=== PATIENT | female | born 1990 | race Caucasian/White ===

== ENCOUNTER → 2017-05-29 11:50 | Outpatient (CLI) | payer OTHER, SELFPAY ==
[2017-05-29 12:01] LABS: Bacteria 0 SEEN /hpf (None Seen); Mucous, Urine 0 SEEN /hpf (<or=2+); Squamous Epithelial Cells - UA 0 SEEN /hpf (5-10); White Blood Cells 0 SEEN /hpf (0-5)
[2017-05-29 14:19] LABS: Color, Urine Yellow (Yellow); Glucose, Dipstick Normal (Normal); Ketone-Dipstick Negative (Negative); Leukocyte Esterase-Dipstick Negative /ul (Negative); Nitrite-Dipstick Negative (Negative); Occult Blood-Urine 10 /ul (Negative); Protein-Dipstick Negative (Negative); Urine Bilirubin Dipstick Negative (Negative); Urine Clarity Sl. Cloudy (Clear); Urine Urobilinogen Normal (Normal)
[2017-05-29 16:45] LABS: Red Blood Cells-Urine 0-5 SEEN /hpf (0-5)
== END ==
PROVIDERS: Visit Provider Obstetrics & Gynecology
DX: Z34.82 Encounter for supervision of other normal pregnancy, second trimester (principal); N39.0 Urinary tract infection, site not specified
CPT/HCPCS: 81001; 87086; 87088

== ENCOUNTER → 2017-06-26 10:27 | Outpatient (CLI) | payer OTHER, SELFPAY ==
[2017-06-26 13:06] LABS: Hematocrit 36.2 % (37-47); Hemoglobin 12.4 g/dl (12.0-15.0); Mean Corp Hgb Conc 34.3 g/gl (32-36); Mean Corpuscular Volume 96.3 fL (81-99); Mean Platelet Vol. 9.3 fl (6.2-12.0); Platelet Count 229 K/mm3 (150-450); RBC Distribution Width SD 43.4 fl (35.1-43.9); Red Blood Count 3.76 M/mm3 (4.2-5.4); White Blood Count 11.7 K/mm3 (4.4-11.0)
[2017-06-26 13:08] LABS: Glucose Challenge Gest 1H 50g 152 mg/dL (70-140)
[2017-06-26 13:14] LABS: Scan Indicated on CBC? Y/N NO
== END ==
PROVIDERS: Visit Provider Obstetrics & Gynecology
DX: Z34.83 Encounter for supervision of other normal pregnancy, third trimester (principal)
CPT/HCPCS: 36415; 82950; 85027

== ENCOUNTER → 2017-07-03 06:54 | Outpatient (CLI) | payer OTHER, SELFPAY ==
[2017-07-03 08:24] LABS: Glucose GTT-Gestation. Fasting 75 mg/dL (<105)
[2017-07-03 09:00] LABS: Anion Gap 11 (5-15); BUN 5 mg/dL (7-18); BUN/Creat Ratio 10.8 RATIO (10-20); Calcium,Total 8.6 mg/dL (8.5-10.1); Chloride 109 mmol/L (98-107); Creatinine, Serum 0.46 mg/dL (0.55-1.02); EST Glomerular Filtration Rate 171 mL/min (>60); Est Glom Filt Rate - Afr Amer 207 mL/min (>60); Glucose 72 mg/dL (74-106); Potassium 3.1 mmol/L (3.5-5.1); Sodium Level 143 mmol/L (136-145)
[2017-07-03 09:49] LABS: Glucose GTT-Gestational 1 Hr 170 mg/dL (<190)
[2017-07-03 09:51] LABS: Glucose GTT-Gestational 2 Hr 168 mg/dL (<165)
[2017-07-03 11:13] LABS: Glucose GTT-Gestational 3 Hr 115 L (<145)
== END ==
PROVIDERS: Family Provider Family Medicine; PCP Family Medicine; Visit Provider Obstetrics & Gynecology
DX: Z34.83 Encounter for supervision of other normal pregnancy, third trimester (principal); E04.9 Nontoxic goiter, unspecified; R73.09 Other abnormal glucose
CPT/HCPCS: 36415; 80048; 82951; 82952

== ENCOUNTER → 2017-08-10 14:22 | Outpatient (CLI) | payer OTHER, SELFPAY ==
[2017-08-10 18:20] LABS: Group B Strep DNA By PCR POSITIVE (Negative); Probe Check PASS
== END ==
PROVIDERS: Visit Provider Obstetrics & Gynecology
DX: Z36.85 Encounter for antenatal screening for Streptococcus B (principal)
CPT/HCPCS: 87653

== ENCOUNTER 2017-09-04 06:50 | Inpatient (IN) | payer OTHER, SELFPAY ==
[2017-09-04 06:57] VITALS: BMI 33.3
[2017-09-04] MEDS: Lactated Ringers 1,000 ML 50 ML IV ×2 (07:30→21:21)
[2017-09-04 07:55] LABS: Hematocrit 39.2 % (37-47); Hemoglobin 13.7 g/dl (12.0-15.0); Mean Corp Hgb Conc 34.9 g/gl (32-36); Mean Corpuscular Hgb 32.7 pg (27.0-32.0); Mean Corpuscular Volume 93.6 fL (81-99); Mean Platelet Vol. 9.6 fl (6.2-12.0); Platelet Count 254 K/mm3 (150-450); RBC Distribution Width CV 13.3 % (11.6-14.6); RBC Distribution Width SD 43.6 fl (35.1-43.9); Red Blood Count 4.19 M/mm3 (4.2-5.4); White Blood Count 10.5 K/mm3 (4.4-11.0)
[2017-09-04 07:56] LABS: Scan Indicated on CBC? Y/N NO
[2017-09-04] MEDS: Oxytocin 30 units/NS 500 ml 30 UNITS/500 ML IV.SOLN IV (08:19)
[2017-09-04] MEDS: Hydrocortisone 10 MG Tablet 15 MG PO ×3 (09:18→22:34)
[2017-09-04 10:52] LABS: Protein, Urine (Random) 9.9 mg/dL (<11.9); Protein:Creat Ratio 331 mg/g CRE (0-200)
[2017-09-04 11:34] LABS: ALB/GLOB Ratio 0.7 RATIO (0.9-2.4); AST(SGOT) 17 U/L (15-37); Alanine Aminotransfer ALT/SGPT 19 U/L (13-56); Albumin, Serum 2.7 g/dL (3.2-5.0); Alkaline Phosphatase 139 U/L (45-117); Anion Gap 10 (5-15); BUN 6 mg/dL (7-18); BUN/Creat Ratio 8.6 RATIO (10-20); Calcium,Total 9.1 mg/dL (8.5-10.1); Chloride 107 mmol/L (98-107); EST Glomerular Filtration Rate 106 mL/min (>60); Est Glom Filt Rate - Afr Amer 129 mL/min (>60); Globulin 4.1 g/dL (2.2-4.2); Glucose 90 mg/dL (74-106); Potassium 3.4 mmol/L (3.5-5.1); Protein, Total 6.8 g/dL (6.4-8.2); Sodium Level 139 mmol/L (136-145); Uric Acid 5.6 mg/dL (2.6-6.0)
--- NOTE | 2017-09-04 18:23 | PCM.PN.BLA ---
Progress Note LABOR PROGRESS NOTE Denies regular contractions. Has intermittent mild cramping. Fetus active. AVSS GEN - NAD, AAO x 3 FHR 120, moderate variability, + accelerations, no decelerations TOCO irritability SVE 3.5/80/-3, moderate and midposition A/P: 27yo G1 @ 39 2/7wga with h/o adult onset CAH, preeclampsia without severe features, Cat I FHR -SVE unchanged, amniotomy performed -IUPC placed, continue pitocin as tolerated by mother and fetus
--- NOTE | 2017-09-04 20:16 | PCM.PN.BLA ---
Progress Note LABOR PROGRESS NOTE Contractions are intensifying. AVSS GEN - NAD, AAO x3 FHR 135, moderate variability, + accelerations, + variable deceleration TOCO 4-5/10 min, MVU 185 SVE 3.5/80/-3 A/P: 27yo G1 @ 39 2/7wga, h/o CAH, IOL for gHTN, Cat II FHR -Overall reassuring FHR -Epidural per patient request -Maternal and statuses reassuring
[2017-09-04] MEDS: fentaNYL-bupivacaine (epidural) 100 ML BAG EPIDURAL (20:30)
[2017-09-05] VITALS (14 sets, daily range): BP systolic 110–150; BP diastolic 65–87; PULSE 85–109; RESP 16–18; TEMP 36.2–37.4; O2SAT 98–100
[2017-09-05] MEDS: fentaNYL-bupivacaine (epidural) 100 ML BAG EPIDURAL ×3 (00:30→10:06)
[2017-09-05] MEDS: Ondansetron 4 MG/2 ML Vial IV ×2 (00:58→21:25)
[2017-09-05] MEDS: Acetaminophen 325 MG Tablet PO (01:00)
[2017-09-05] MEDS: Lactated Ringers 1,000 ML 50 ML IV ×3 (02:41→11:49)
[2017-09-05] MEDS: Amnioinfusion- 0.9% NS 1,000 ML IV.SOLN. INTRA-UTER (05:00)
[2017-09-05] MEDS: Hydrocortisone 10 MG Tablet 15 MG PO (07:58)
[2017-09-05] MEDS: 0.9% Saline Lock 10 ML Syringe IV ×2 (08:24→08:26)
[2017-09-05] MEDS: Sodium Citrate/Citric Acid 30 ML UDC PO (15:56)
--- NOTE | 2017-09-05 16:01 | PCM.PROGNOTE ---
Subjective: Comfortable. Objective: Afeb VSS had temp of 100.8 but since resolved - Physical Exam General: Alert, Oriented x3, Cooperative, No apparent distress Lungs: Clear to auscultation, Normal air movement Cardiovascular: Regular rate, Regular Rhythm Abdomen: Gravid, Appropriate for Gestational Age Psych/Mental Status: Normal Affect Comment: FD 0 station Weight: 176 lb 4 oz Body Mass Index (BMI) 33.3 Intake and Output for Last 24 Hours 09/03/17 09/04/17 09/05/17 23:59 23:59 23:59 Intake Total 200 / 200 6044 / 6044 Output Total 2200 / 2200 Balance 200 / 200 3844 / 3844 Medical Necessity - Tobacco Use Smoking Status: Never smoker Assessment/Plan Now has been pushing for over 4 hours with no descent of the head. Vertex only at 0 station. Given lack of descent will proceed to delivery. Procedures, indication, and risks discussed. All questions answered. Will have day care center director at delivery secondary to meconium noted.
--- NOTE | 2017-09-05 16:04 | PN_ITS ---
Subjective: Comfortable. Objective: Afeb VSS had temp of 100.8 but since resolved - Physical Exam General: Alert, Oriented x3, Cooperative, No apparent distress Lungs: Clear to auscultation, Normal air movement Cardiovascular: Regular rate, Regular Rhythm Abdomen: Gravid, Appropriate for Gestational Age Psych/Mental Status: Normal Affect Comment: FD 0 station Weight: 176 lb 4 oz Body Mass Index (BMI) 33.3 Intake and Output for Last 24 Hours 09/03/17 09/04/17 09/05/17 23:59 23:59 23:59 Intake Total 200 / 200 6044 / 6044 Output Total 2200 / 2200 Balance 200 / 200 3844 / 3844 Medical Necessity - Tobacco Use Smoking Status: Never smoker Assessment/Plan Now has been pushing for over 4 hours with no descent of the head. Vertex only at 0 station. Given lack of descent will proceed to delivery. Procedures, indication, and risks discussed. All questions answered. Will have physical therapist clinic director at delivery secondary to meconium noted.
--- NOTE | 2017-09-05 16:11 | DCINST_ITS ---
Discharge Diet: No Restrictions Discharge Activity: Return to Normal Activity, May Not Drive, May not drive while taking narcotic pain medications., May Shower Return to work on:: 10/22/17 May shower in (days): 0 May resume sexual activity in: 4-6 weeks Call your doctor if your incision/area has: Sudden Increased Bleeding, Increased Pain/ Swelling, Increased Redness, Foul Smelling Discharge, Swelling at the incision site Call your doctor if you observe: Fever of 101 or Higher, Inability to urinate, Inability to have a bowel movement, Using more than one pad per hour, Shortness of breath, Chest pain, Uncontrolled pain Remove Dressing in (days):: 2 Cleanse incision/area with: Soap & Water Additional Instructions: If you experience any of the following, contact your healthcare provider. * Bleeding that soaks a pad every hour for 2 hours * Fever 100.4 or higher * Unrelieved incision or abdominal pain * Swelling, redness, discharge or bleeding from your incision or episiotomy site * Your incision begins to separate * Problems urinating (including inability to urinate or burning while urinating) . * Visual changes * Severe headache * Flu-like symptoms * Pain or redness in one of both of your breasts * Pain, warmth, tenderness or swelling in your legs, especially the calf area * Frequent nausea and vomiting * Symptoms of depression or anxiety If you experience any of the following, call 911 or go to the nearest Emergency Room. * Chest pain * Problems breathing * Seizure activity * Partial or complete paralysis of a body part, slurred speech, weakness or drooping of the face, or a sudden inability to walk or hold your balance Allergies/Adverse Reactions: Allergies No Known Allergies Allergy (Verified 09/04/17 07:51) Medications to take at Discharge Ibuprofen 600 mg PO 4X/DAY #30 tab 09/05/17 Oxycodone [Oxyir] 5 - 10 mg PO Q4H PRN PRN 7 Days #20 tab 09/05/17 The following prescriptions were given: Oxycodone [Oxyir] 5 - 10 mg PO Q4H PRN PRN 7 Days #20 tab PRN Reason: Mod-Severe Pain () Ibuprofen 600 mg PO 4X/DAY #30 tab Follow-Up: Call to make an appointment with your doctor for an incision check in 1-2 weeks. You will also need a 6 week post- follow up appointment. Test results from this visit will be discussed in further detail at your follow- up appointment, if applicable. Please Follow Up With: Noemy Gutierrez MD When: one week Primary Care Physician: Brian Veliz MD [Primary Care Provider] - Proposed Discharge Date: 09/08/17
[2017-09-05] MEDS: Oxytocin 30 units/NS 500 ml 30 UNITS/500 ML IV.SOLN 167 UNITS IV (16:34)
--- NOTE | 2017-09-05 17:15 | PCM.OB.CSR ---
- Problem List (1) Arrest of descent, delivered, current hospitalization Status: Chronic Delivery Classification: VALORIE Final NEGRITO: 09/09/17 Final NEGRITO Source: US <20 weeks Gestational age: 39 Weeks and 3 Days doctor who attended delivery (if requested by OB): Aida Alexander Indications for : Arrrest of Descent Description of Procedure: No descent lower than 0 station despeite four hours of pushing efforts. Delivery of live female weighing 8 lbs. Apgars were 8/9. Amniotic Membrane Rupture Type: Spontaneous Amniotic Fluid Description: Clear Placenta Disposition: [facility] Drain: Antonio to straight drain Fluids Replaced: 1500cc Cord Entanglement: None Nuchal Cord Compression: Without compression Cord Vessel Description: 3 Vessels Esitmated Blood Loss (ml): 600cc Infant Gender: Female (1 minute): 8 (5 minute): 9 Delayed cord clamping: No Pre-op Antibiotic Given: Ancef 2 grams IV x1 Pt instructed on risks of surgery: Bleeding, Infection, Injury to surrounding structure(s) including bowel and bladder Complications: None - Admit VTE Documentation VTE Present on Admission: No VTE Mechan Device Prophylaxis: SCD's VTE Pharm Prophylaxis ordered?: No
--- NOTE | 2017-09-05 17:19 | PCM.OPRPT ---
Problem List (1) Arrest of descent, delivered, current hospitalization Status: Chronic Report of Operation Date of Procedure: 09/05/17 Pre-Operative Diagnosis: Arrest of Descent Post-Operative Diagnosis: Same Surgery/Procedure Performed:: Primary Low Transverse Section Description of Surgical Findings:: Maximum descent of 0 station despite 4 hours of pushing efforts. Delivery of live female with Apgars of 8/9. weight 3xim2ug. Thin meconium present. Normal appearing uterus, ovaries, and fallopian tubes. machine hoop maker: Lyssa Delgado Type of Anesthesia:: Epidural Anesthesiologist: Fermin Eugene Special Medications: none Specimen's removed: cord blood Drains: lomeli Estimated Blood Loss (mL): 600cc Fluids Replaced: 1500cc Description of Procedure: Samara was counselled on the indications, risks, and postoperative expectations of the section. All questions were answered. She was taken to the OR with IV running. She was given 2 grams of Ancef intravenously for surgical prophylaxis. SCDs were in place from the preoperative room through surgery and into recovery. A lomeli catheter had been previously placed. She was then dosed through the epidural for anesthesia and then prepped and draped in the supine position with a leftward tilt. Once anesthesia was deemed adequate a Pfannensteil skin incision was made with the scalpel and the subcutaneous tissue was dissected down to the level of fascia with sharp and blunt dissection. The fascia was then incised in the midline and the fascial incision was extended bilaterally using the Márquez scissors. The upper portion of the fascial defect was grasped with two Bennett clamps elevated and the rectus muscles dissected off with sharp and blunt dissection. In a similar fashion the rectus muscles were dissected off the lower fascial defect. The rectus muscles were in the midline, the peritoneum identified and entered bluntly. This peritoneal defect was extended using blunt retraction. A bladder blade was then placed. The vesicouterine peritoneum was incised and a bladder flap created. The bladder blade was then replaced. The lower uterine segment was then incised with the scalpel and once the cavity was entered the uterine defect was enlarged using blunt lateral and superior traction. The baby's head was then delivered easily followed by the body. The nose and mouth were suctioned with a bulb suction and the cord clamped and cut. The baby was handed off to the waiting nursing staff for evaluation. The placenta was then delivered manually, the uterus exteriorized, and the cavity cleared of all clot and membranes. The uterine defect was then closed in two layers with #1 Vicryl suture. The posterior cul de sac was then cleared of all clot and fluid. The uterus was then returned to the abdomen. The gutters were cleared of all clot and fluid. The uterine incision was reinspected and found to be hemostatic. The peritoneum was then closed with a running stitch of 2-0 vicryl. The rectus muscles reapproximated with 0-Vicryl. The fascia was closed with a running stitch of #1 Stratofix suture. The subcutaneous tissue was closed with 2-0 Vicryl. The skin was closed with a subcuticular stitch of 4-0 Monocryl. Sponge, lap, needle, and instrument counts were correct. Samara was taken to her recovery room in stable condition. Grafts/Implants Used: none - Complications none - Admit VTE Documentation VTE Present on Admission: No VTE Mechan Device Prophylaxis: SCD's VTE Pharm Prophylaxis ordered?: No
[2017-09-05] MEDS: Lactated Ringers 1,000 ML 100 ML IV ×2 (17:25→21:27)
--- NOTE | 2017-09-05 17:26 | OP.PCM_ITS ---
Problem List (1) Arrest of descent, delivered, current hospitalization Status: Chronic Report of Operation Date of Procedure: 09/05/17 Pre-Operative Diagnosis: Arrest of Descent Post-Operative Diagnosis: Same Surgery/Procedure Performed:: Primary Low Transverse Section Description of Surgical Findings:: Maximum descent of 0 station despite 4 hours of pushing efforts. Delivery of live female with Apgars of 8/9. weight [id number]. Thin meconium present. Normal appearing uterus, ovaries, and fallopian tubes. cutter machine: Lyssa Delgado Type of Anesthesia:: Epidural Anesthesiologist: Fermin Eugene Special Medications: none Specimen's removed: cord blood Drains: lomeli Estimated Blood Loss (mL): 600cc Fluids Replaced: 1500cc Description of Procedure: Samara was counselled on the indications, risks, and postoperative expectations of the section. All questions were answered. She was taken to the OR with IV running. She was given 2 grams of Ancef intravenously for surgical prophylaxis. SCDs were in place from the preoperative room through surgery and into recovery. A lomeli catheter had been previously placed. She was then dosed through the epidural for anesthesia and then prepped and draped in the supine position with a leftward tilt. Once anesthesia was deemed adequate a Pfannensteil skin incision was made with the scalpel and the subcutaneous tissue was dissected down to the level of fascia with sharp and blunt dissection. The fascia was then incised in the midline and the fascial incision was extended bilaterally using the Márquez scissors. The upper portion of the fascial defect was grasped with two Bennett clamps elevated and the rectus muscles dissected off with sharp and blunt dissection. In a similar fashion the rectus muscles were dissected off the lower fascial defect. The rectus muscles were in the midline, the peritoneum identified and entered bluntly. This peritoneal defect was extended using blunt retraction. A bladder blade was then placed. The vesicouterine peritoneum was incised and a bladder flap created. The bladder blade was then replaced. The lower uterine segment was then incised with the scalpel and once the cavity was entered the uterine defect was enlarged using blunt lateral and superior traction. The baby's head was then delivered easily followed by the body. The nose and mouth were suctioned with a bulb suction and the cord clamped and cut. The baby was handed off to the waiting nursing staff for evaluation. The placenta was then delivered manually, the uterus exteriorized, and the cavity cleared of all clot and membranes. The uterine defect was then closed in two layers with #1 Vicryl suture. The posterior cul de sac was then cleared of all clot and fluid. The uterus was then returned to the abdomen. The gutters were cleared of all clot and fluid. The uterine incision was reinspected and found to be hemostatic. The peritoneum was then closed with a running stitch of 2-0 vicryl. The rectus muscles reapproximated with 0-Vicryl. The fascia was closed with a running stitch of #1 Stratofix suture. The subcutaneous tissue was closed with 2-0 Vicryl. The skin was closed with a subcuticular stitch of 4 -0 Monocryl. Sponge, lap, needle, and instrument counts were correct. Samara was taken to her recovery room in stable condition. Grafts/Implants Used: none - Complications none - Admit VTE Documentation VTE Present on Admission: No VTE Mechan Device Prophylaxis: SCD's VTE Pharm Prophylaxis ordered?: No
[2017-09-05] MEDS: Methylergonovine 0.2 MG/ML Ampul IM ×2 (19:45→22:05)
[2017-09-05] MEDS: Ketorolac 30 MG/ML Syringe IV (23:46)
[2017-09-06] VITALS (12 sets, daily range): BP systolic 128–143; BP diastolic 61–82; PULSE 94–105; RESP 16–24; TEMP 36.4–36.9; O2SAT 96–100
[2017-09-06] MEDS: Cefazolin 1 GM/50 ML BAG IV ×2 (00:24→08:06)
[2017-09-06] MEDS: Ketorolac 30 MG/ML Syringe IV ×3 (06:20→17:54)
[2017-09-06 06:34] LABS: Hematocrit 25.2 % (37-47); Hemoglobin 8.7 g/dl (12.0-15.0); Mean Corp Hgb Conc 34.5 g/gl (32-36); Mean Corpuscular Volume 95.5 fL (81-99); Platelet Count 157 K/mm3 (150-450); RBC Distribution Width CV 13.9 % (11.6-14.6); Red Blood Count 2.64 M/mm3 (4.2-5.4); White Blood Count 9.2 K/mm3 (4.4-11.0)
[2017-09-06 06:38] LABS: Scan Indicated on CBC? Y/N NO
--- NOTE | 2017-09-06 06:41 | PCM.PN.OB ---
Subjective: No specific complaints. Pain reasonably controlled. Objective: Afeb VSS Hgb somewhat low today but asymptomatic with good urine output. - Physical Exam General: Alert, Oriented x3, Cooperative, No apparent distress Lungs: Clear to auscultation, Normal air movement Cardiovascular: Regular rate, Regular Rhythm Abdomen: Soft, Non Tender, Non-Distended, - - INcision dressing dry Extremities: No edema, No Calf Tenderness Skin: No rashes Neurological: Neuro grossly intact Psych/Mental Status: Normal Affect Comment: Lochia appropriate POD#1 Vital Signs Temp Pulse Resp BP Pulse Ox 97.5 F L 105 H 18 128/82 H 99 09/06/17 03:15 09/06/17 03:15 09/06/17 04:20 09/06/17 03:15 09/06/17 04:20 Oxygen Delivery Method Room Air Weight: 176 lb 4 oz Body Mass Index (BMI) 33.3 Intake and Output for Last 24 Hours 09/04/18 //18 18 23:59 23:59 23:59 Intake Total 200 / 200 7531 / 7531 Output Total 2500 / 2500 Balance 200 / 200 5031 / 5031 Laboratory Tests Past 24 Hrs /03/25 06:15 WBC 9.2 RBC 2.64 L Hgb 8.7 L Hct 25.2 L MCV 95.5 MCH 33.0 H MCHC 34.5 RDW 13.9 RDW Differential 48.0 H Plt Count 157 MPV 9.0 Medical Necessity - Tobacco Use Smoking Status: Never smoker Assessment/Plan Doing well on POD#1. Continue routine PO care. CBC ordered for tomorrow.
[2017-09-06] MEDS: Hydrocortisone 10 MG Tablet 15 MG PO ×3 (08:13→17:54)
[2017-09-06] MEDS: 0.9% Saline Lock 10 ML Syringe IV ×3 (08:32→17:53)
[2017-09-06] MEDS: Lactated Ringers 1,000 ML 100 ML IV (08:45)
[2017-09-06] MEDS: oxyCODONE 5 MG Tablet PO (16:33)
[2017-09-06] MEDS: Senna/Docusate Sodium 1 Tablet PO (20:53)
[2017-09-07] MEDS: Ketorolac 30 MG/ML Syringe IV ×4 (00:15→17:40)
[2017-09-07 03:00] VITALS: BP 133/61; PULSE 110; RESP 16; TEMP 36.4; O2SAT 98
[2017-09-07] MEDS: 0.9% Saline Lock 10 ML Syringe IV ×2 (05:31→17:39)
[2017-09-07 05:49] LABS: Absolute Lymphocyte Count 1.53 X10^3/ul (0.83-4.51); Absolute Neutrophil Count 6.9 X10^3/uL (2.0-7.7); Basophil# 0.01 X10^3/uL; Basophil% 0.1 % (0-1); Eosinophil# 0.05 X10^3/uL; Eosinophils% 0.6 % (0-5); Hematocrit 21.6 % (37-47); Hemoglobin 7.3 g/dl (12.0-15.0); Lymphocyte # 1.53 X10^3/ul (4.0); Lymphocyte % 17.1 % (19-41); Mean Corp Hgb Conc 33.8 g/gl (32-36); Mean Corpuscular Hgb 32.9 pg (27.0-32.0); Mean Corpuscular Volume 97.3 fL (81-99); Mean Platelet Vol. 9.5 fl (6.2-12.0); Monocyte# 0.43 X10^3/uL; Monocyte% 4.8 % (0-10); Neutrophil # 6.89 X10^3/uL (2.7-7.7); Neutrophil % 77.2 % (47-70); Platelet Count 190 K/mm3 (150-450); RBC Distribution Width CV 13.3 % (11.6-14.6); Red Blood Count 2.22 M/mm3 (4.2-5.4); White Blood Count 8.9 K/mm3 (4.4-11.0)
[2017-09-07 05:53] LABS: POSITIVE COUNT NO; POSITIVE DIFFERENTIAL NO; POSITIVE MORPHOLOGY NO
[2017-09-07 08:00] VITALS: BP 137/68; PULSE 96; RESP 16; TEMP 36.3
--- NOTE | 2017-09-07 08:15 | PCM.PN.OB ---
Subjective: Denies headache, vision changes, shortness of breath or abdominal pain. Her incisional site is sore, but pain controlled. Passing flatus, +bowel movement. Denies lightheadedness, palpitations. Objective: AVSS - Physical Exam General: Alert, Oriented x3, Cooperative, No apparent distress HEENT: Atraumatic, Normocephalic Lungs: Clear to auscultation, Normal air movement Cardiovascular: Regular rate, Regular Rhythm, Normal S1, Normal S2 Abdomen: Bowel Sounds Present, Soft, Non Tender, Non-Distended, - - Fundus firm and nontender, incisional dressing c/d/i Extremities: No Calf Tenderness, - - trace LE edema Neurological: Neuro grossly intact Psych/Mental Status: Normal Affect, Appropriate, Alert and oriented to time, place, person, mood and affect Vital Signs Temp Pulse Resp BP Pulse Ox 98 F 88 18 140/88 H 98 09/07/17 13:30 09/07/17 13:30 09/07/17 13:30 09/07/17 13:30 09/07/17 03:00 Oxygen Delivery Method Room Air Weight: 79.946 kg Body Mass Index (BMI) 33.3 Intake and Output for Last 24 Hours 09/05/17 09/06/17 09/07/17 23:59 23:59 23:59 Intake Total 7531 / 7531 3264 / 3264 Output Total 2500 / 2500 4250 / 4250 500 / 500 Balance 5031 / 5031 -986 / -986 -500 / -500 Laboratory Tests Past 24 Hrs 09/07/17 05:36 WBC 8.9 RBC 2.22 L Hgb 7.3 L Hct 21.6 L MCV 97.3 MCH 32.9 H MCHC 33.8 RDW 13.3 RDW Differential 44.0 H Plt Count 190 MPV 9.5 Immature Gran % (Auto) 0.200 Neut % (Auto) 77.2 H Lymph % (Auto) 17.1 L [place] % (Auto) 4.8 Eos % (Auto) 0.6 Baso % (Auto) 0.1 Absolute Neuts (auto) 6.9 Absolute Lymphs (auto) 1.53 Total Counted Not Reportable Medical Necessity - Tobacco Use Smoking Status: Never smoker Assessment/Plan 27yo POD#2 s/p PLTCS doing well. -Post-op anemia - pt asx, no evidence of bleed on exam. Will obtain orthostatics. Repeat CBC tomorrow. Fe supplementation. -Routine post-op care -Rh negative, f/u screen
[2017-09-07] MEDS: Hydrocortisone 10 MG Tablet 15 MG PO ×3 (08:22→17:38)
[2017-09-07] MEDS: Acetaminophen 500 MG Tablet 1000 MG PO (08:22)
[2017-09-07 09:30] VITALS: BP 146/74; PULSE 104; RESP 16
[2017-09-07 09:35] VITALS: BP 120/76; BP 146/77; PULSE 106; PULSE 98; RESP 16
[2017-09-07 13:30] VITALS: BP 140/88; PULSE 88; RESP 18; TEMP 36.6
--- NOTE | 2017-09-07 18:20 | DCINST_ITS ---
Discharge Diet: No Restrictions Discharge Activity: Return to Normal Activity, May Not Drive, May not drive while taking narcotic pain medications., May Shower Return to work on:: 10/22/17 May shower in (days): 0 May resume sexual activity in: 6 weeks Lifting Restrictions: 10 lb Call your doctor if your incision/area has: Sudden Increased Bleeding, Increased Pain/ Swelling, Increased Redness, Foul Smelling Discharge, Swelling at the incision site Call your doctor if you observe: Fever of 101 or Higher, Inability to urinate, Inability to have a bowel movement, Using more than one pad per hour, Shortness of breath, Chest pain, Uncontrolled pain Suture Line Care: Avoid Pulling/Pushing Remove Dressing in (days):: 2 Cleanse incision/area with: Soap & Water Additional Instructions: If you experience any of the following, contact your healthcare provider. * Bleeding that soaks a pad every hour for 2 hours * Fever 100.4 or higher * Unrelieved incision or abdominal pain * Swelling, redness, discharge or bleeding from your incision or episiotomy site * Your incision begins to separate * Problems urinating (including inability to urinate or burning while urinating) . * Visual changes * Severe headache * Flu-like symptoms * Pain or redness in one of both of your breasts * Pain, warmth, tenderness or swelling in your legs, especially the calf area * Frequent nausea and vomiting * Symptoms of depression or anxiety If you experience any of the following, call 911 or go to the nearest Emergency Room. * Chest pain * Problems breathing * Seizure activity * Partial or complete paralysis of a body part, slurred speech, weakness or drooping of the face, or a sudden inability to walk or hold your balance Allergies/Adverse Reactions: Allergies No Known Allergies Allergy (Verified 09/04/17 07:51) Medications to take at Discharge Ibuprofen 600 mg PO 4X/DAY #30 tab 09/05/17 Oxycodone [Oxyir] 5 - 10 mg PO Q4H PRN PRN 7 Days #20 tab 09/05/17 Ferrous Sulfate 325 mg PO BIDCM #60 tab 09/07/17 The following prescriptions were given: Oxycodone [Oxyir] 5 - 10 mg PO Q4H PRN PRN 7 Days #20 tab PRN Reason: Mod-Severe Pain (-10/10) Ferrous Sulfate 325 mg PO BIDCM #60 tab Ibuprofen 600 mg PO 4X/DAY #30 tab Follow-Up: Call to make an appointment with your doctor for an incision check in 1-2 weeks. You will also need a 6 week post- follow up appointment. Test results from this visit will be discussed in further detail at your follow- up appointment, if applicable. Please Follow Up With: Noemy Gutierrez MD When: 1-2 weeks Primary Care Physician: Brian Veliz MD [Primary Care Provider] - Proposed Discharge Date: 09/08/17
[2017-09-07 21:15] VITALS: BP 140/71; PULSE 105; RESP 16; TEMP 36.7; O2SAT 97
[2017-09-08] VITALS (8 sets, daily range): BP systolic 135–147; BP diastolic 66–83; PULSE 102–115; RESP 16–20; TEMP 36.3–37.1
[2017-09-08] MEDS: oxyCODONE 5 MG Tablet PO (03:03)
[2017-09-08 05:55] LABS: Absolute Lymphocyte Count 1.59 X10^3/ul (0.83-4.51); Absolute Neutrophil Count 6.4 X10^3/uL (2.0-7.7); Basophil# 0.01 X10^3/uL; Basophil% 0.1 % (0-1); Eosinophil# 0.11 X10^3/uL; Eosinophils% 1.3 % (0-5); Hemoglobin 6.6 g/dl (12.0-15.0); Lymphocyte # 1.59 X10^3/ul (4.0); Lymphocyte % 18.4 % (19-41); Mean Corpuscular Hgb 32.2 pg (27.0-32.0); Mean Corpuscular Volume 97.6 fL (81-99); Mean Platelet Vol. 9.1 fl (6.2-12.0); Monocyte# 0.45 X10^3/uL; Monocyte% 5.2 % (0-10); Neutrophil # 6.39 X10^3/uL (2.7-7.7); Neutrophil % 74.2 % (47-70); Platelet Count 225 K/mm3 (150-450); RBC Distribution Width SD 43.4 fl (35.1-43.9); Red Blood Count 2.05 M/mm3 (4.2-5.4); White Blood Count 8.6 K/mm3 (4.4-11.0)
[2017-09-08 05:56] LABS: POSITIVE COUNT NO; POSITIVE DIFFERENTIAL NO; POSITIVE MORPHOLOGY NO
[2017-09-08] MEDS: Ibuprofen 600 MG Tablet PO (06:05)
[2017-09-08] MEDS: 0.9% Saline Lock 10 ML Syringe IV (07:02)
[2017-09-08] MEDS: Hydrocortisone 10 MG Tablet 15 MG PO ×2 (08:14→12:45)
[2017-09-08] MEDS: Ferrous Sulfate 325 MG Tablet PO (08:22)
--- NOTE | 2017-09-08 10:27 | PCM.PN.OB ---
Subjective: Reports shakiness from yesterday resolved. Denies lightheadedness, chest pain, shortness of breath or palpitations. Pain controlled. Denies heavy lochia. Objective: AVSS - Physical Exam General: Alert, Oriented x3, Cooperative, No apparent distress HEENT: Atraumatic, Normocephalic Lungs: Clear to auscultation, Normal air movement Cardiovascular: Regular rate, Regular Rhythm, Normal S1, Normal S2 Abdomen: Bowel Sounds Present, Soft, Non Tender, Non-Distended, - - Fundus firm and nontender, dressing c/d/i Extremities: No edema, No Calf Tenderness Neurological: Neuro grossly intact Psych/Mental Status: Normal Affect, Appropriate, Alert and oriented to time, place, person, mood and affect Vital Signs Temp Pulse Resp BP Pulse Ox 97.4 F L 102 H 20 H 141/76 H 97 09/08/17 08:24 09/08/17 08:24 09/08/17 08:24 09/08/17 08:24 09/07/17 21:15 Oxygen Delivery Method Room Air Weight: 79.946 kg Body Mass Index (BMI) 33.3 Intake and Output for Last 24 Hours 09/06/17 09/07/17 09/08/17 23:59 23:59 23:59 Intake Total 3264 / 3264 Output Total 4250 / 4250 500 / 500 Balance -986 / -986 -500 / -500 Laboratory Tests Past 24 Hrs 09/08/17 09/08/17 05:35 05:35 WBC 8.6 RBC 2.05 L Hgb 6.6 L Hct 20.0 L MCV 97.6 MCH 32.2 H MCHC 33.0 RDW 13.0 RDW Differential 43.4 Plt Count 225 MPV 9.1 Immature Gran % (Auto) 0.800 Neut % (Auto) 74.2 H Lymph % (Auto) 18.4 L [place] % (Auto) 5.2 Eos % (Auto) 1.3 Baso % (Auto) 0.1 Absolute Neuts (auto) 6.4 Absolute Lymphs (auto) 1.59 Total Counted Not Reportable Blood Type O NEGATIVE Antibody Screen NEGATIVE Medical Necessity - Tobacco Use Smoking Status: Never smoker Assessment/Plan 27yo POD#3 s/p PLTCS doing well with post-op anemia. -Hbg 6.6, patient asx, however intermittent tachycardia persists. Advised transfusion - will give 1U PRBC -Routine post-op care -Rh negative, infant Rh negative -Plan for d/c home later today
--- NOTE | 2017-09-11 20:45 | PCM.DC.SUM ---
Discharge Date and Diagnosis Date of Admission: 09/04/17 Date of Discharge: 09/08/17 - Secondary Discharge Diagnosis Chronic Problems Arrest of descent, delivered, current hospitalization (Chronic) Hospital Course and Treatment Consultations 09/04/17 06:58 Consult: Anesthesia Routine Comment: Reason For Exam: Operations: - - section Summary of Care Provided: The patient is a 27 year old 1 admitted at 39 + weeks gestation with oligohydramnios and gestational hypertension for induction of labor. She progressed to 10cm dilation and subsequently underwent section for arrest of descent. Her post-operative course was complicated by anemia. She was given 1 U PRBC. Her post-operative course was otherwise unremarkable and she was discharged to home on post-operative day #3. Discharge Diet: No Restrictions Discharge Activity: Return to Normal Activity, May Not Drive, May not drive while taking narcotic pain medications., May Shower Return to work on:: 10/22/17 May shower in (days): 0 May resume sexual activity in: 6 weeks Call your doctor if your incision/area has: Sudden Increased Bleeding, Increased Pain/ Swelling, Increased Redness, Foul Smelling Discharge, Swelling at the incision site Call your doctor if you observe: Fever of 101 or Higher, Inability to urinate, Inability to have a bowel movement, Using more than one pad per hour, Shortness of breath, Chest pain, Uncontrolled pain Suture Line Care: Avoid Pulling/Pushing Remove Dressing in (days):: 2 Cleanse incision/area with: Soap & Water Home Medications: Medications to take at Discharge Ibuprofen 600 mg PO 4X/DAY #30 tab 09/05/17 Oxycodone [Oxyir] 5 - 10 mg PO Q4H PRN PRN 7 Days #20 tab 09/05/17 Ferrous Sulfate 325 mg PO BIDCM #60 tab 09/07/17 Following Prescrptions Were Given to Patient: Oxycodone [Oxyir] 5 - 10 mg PO Q4H PRN PRN 7 Days #20 tab PRN Reason: Mod-Severe Pain (4-1010) Ferrous Sulfate 325 mg PO BIDCM #60 tab Ibuprofen 600 mg PO 4X/DAY #30 tab Primary Care Physician: Brian Veliz MD [Primary Care Provider] - Please Follow Up With: Noemy Gutierrez MD When: 1-2 weeks Medical Necessity - Tobacco Use Smoking Status: Never smoker Meaningful Use Info Meaningful Use Diagnoses (Choose all that apply): None applicable
== END 2017-09-08 14:40 | disposition home or self-care (01) | DRG 766 ==
PROVIDERS: Obstetrics & Gynecology; Admitting Provider Obstetrics & Gynecology; Family Provider Family Medicine; PCP Family Medicine; Visit Provider Obstetrics & Gynecology
DX: O62.1 Secondary uterine inertia (principal); Z37.0 Single live birth; Z3A.39 39 weeks gestation of pregnancy; O77.0 Labor and delivery complicated by meconium in amniotic fluid; O14.94 Unspecified pre-eclampsia, complicating childbirth; D64.9 Anemia, unspecified; O99.02 Anemia complicating childbirth; E25.0 Congenital adrenogenital disorders associated with enzyme deficiency; Z79.52 Long term (current) use of systemic steroids
CPT/HCPCS: 59025; 59050; 80053; 82570; 84156; 84550; 85025; 85027; 86850; 86900; 86901; 86920; 99218; J7030; J7040; J7120; P9016; A4216; G0378; J2405; J3490

== ENCOUNTER → 2020-07-06 | Outpatient (CLI) | payer OTHER, SELFPAY ==
[2020-07-09 13:07] LABS: HPV APTIMA, High Risk Negative (Negative)
== END | disposition home or self-care (01) ==
LOC: LABSPEC 12:13
PROVIDERS: PCP Family Medicine; Visit Provider Obstetrics & Gynecology
DX: L02.211 Cutaneous abscess of abdominal wall (principal); Z12.4 Encounter for screening for malignant neoplasm of cervix
CPT/HCPCS: 87070; 87205; 87624; 88175; G0145

== ENCOUNTER → 2020-07-23 | Outpatient (CLI) | payer OTHER, SELFPAY ==
[2020-07-23 15:33] LABS: Progesterone Level 2.99 ng/mL (See Comment); T3 Total - Triiodothyronine 1.27 ng/mL (0.6-1.81); Vitamin D,25 Hydroxy 31.7 ng/mL
[2020-07-23 16:34] LABS: Estradiol 69.5 pg/mL; Free T3 3.1 pg/mL (2.18-3.98); Prolactin 3.4 ng/mL; Thyroid Stim Hormone (TSH) 3.03 uIU/mL (0.358-3.74)
[2020-07-25 08:53] LABS: Sex Hormone-binding Globulin 26.2 nmol/L (24.6-122.0)
[2020-07-31 10:09] LABS: 17-Hydroxyprogesterone 5558 ng/dL (.)
== END | disposition home or self-care (01) ==
LOC: LABSPEC 13:54
PROVIDERS: PCP Family Medicine; Visit Provider Obstetrics & Gynecology
DX: N91.5 Oligomenorrhea, unspecified (principal)
CPT/HCPCS: 36415; 82306; 82533; 82627; 82670; 83001; 83498; 84144; 84146; 84270; 84403; 84439; 84443; 84480; 84481; 82626

== ENCOUNTER → 2021-01-18 16:24 | Outpatient (CLI) | payer OTHER, SELFPAY ==
[2021-01-18 17:17] LABS: Absolute Lymphocyte Count 1.61 X10^3/uL (0.83-4.51); Absolute Neutrophil Count 7.3 X10^3/uL (2.0-7.7); Basophil# 0.04 X10^3/uL; Basophil% 0.4 % (0-1); Eosinophil# 0.08 X10^3/uL; Eosinophils% 0.8 % (0-5); Hematocrit 41.7 % (37-47); Hemoglobin 14.3 g/dL (12.0-15.0); Lymphocyte # 1.61 X10^3/ul (0.83-4.51); Lymphocyte % 16.9 % (19-41); Mean Corp Hgb Conc 34.3 g/dL (32-36); Mean Corpuscular Hgb 32.6 pg (27.0-32.0); Mean Platelet Vol. 9.1 fl (6.2-12.0); Monocyte# 0.42 X10^3/uL; Monocyte% 4.4 % (0-10); NRBC Flagged by Analyzer 0 % (0-5); Neutrophil # 7.34 X10^3/uL (2.7-7.7); Platelet Count 357 K/mm3 (150-450); RBC Distribution Width CV 11.9 % (11.6-14.6); RBC Distribution Width SD 41.2 fl (35.1-43.9); Red Blood Count 4.39 M/mm3 (4.2-5.4); White Blood Count 9.5 K/mm3 (4.4-11.0)
[2021-01-18 17:27] LABS: Color, Urine Straw (Yellow); Glucose, Dipstick Normal (Normal); Ketone-Dipstick Negative (Negative); Leukocyte Esterase-Dipstick Negative /ul (Negative); Nitrite-Dipstick Negative (Negative); Occult Blood-Urine Negative /ul (Negative); Protein-Dipstick Negative (Negative); Specific Gravity, Urine 1.005 (1.002-1.030); Urine Bilirubin Dipstick Negative (Negative); Urine Clarity Clear (Clear); Urine Urobilinogen Normal (Normal)
[2021-01-18 17:35] LABS: Amphetamine Urine VISTA NEGATIVE (<1000 ng/mL); Barbiturate Urine VISTA NEGATIVE (< 200 ng/mL); Benzodiazepine Urine VISTA NEGATIVE (< 200 ng/mL); Cocaine Urine VISTA NEGATIVE (< 300 ng/mL); Ecstacy Urine VISTA NEGATIVE (< 500 ng/mL); Methadone Urine VISTA NEGATIVE (< 300 ng/mL); PCP Urine VISTA NEGATIVE (< 25 ng/mL); THC Urine VISTA NEGATIVE (< 50 ng/mL); Vista UDS pH Range 6
[2021-01-18 18:22] LABS: Thyroid Stim Hormone (TSH) 1.49 uIU/mL (0.358-3.74)
[2021-01-19 09:03] LABS: HIV - WCH Non-Reactive (Nonreactive); Hepatitis B Surface Antigen Non-Reactive (Nonreactive); Hepatitis C Antibody Non-Reactive (Nonreactive); Rubella IgG Reactive (Nonreactive); Syphilis Antibodies Non-reactive
[2021-01-20 22:07] LABS: Chlamydia By Nucleic Acid AMP Negative (Negative)
[2021-01-21 08:08] LABS: Gonococcus By Nucleic Acid AMP Negative (Negative)
== END ==
PROVIDERS: PCP Family Medicine; Visit Provider Obstetrics & Gynecology
DX: Z34.81 Encounter for supervision of other normal pregnancy, first trimester (principal); Z11.3 Encounter for screening for infections with a predominantly sexual mode of transmission
CPT/HCPCS: 36415; 80307; 81002; 84443; 85025; 86703; 86762; 86780; 86803; 87086; 87088; 87340; 87491; 87591

== ENCOUNTER 2021-03-30 10:58 | Outpatient (CLI) | payer OTHER, SELFPAY ==
[2021-03-30 12:04] LABS: Hemoglobin A1c 4.9 % (3.8-5.6)
== END 2021-03-30 23:59 | disposition home or self-care (01) ==
LOC: WOBLAB 10:59
PROVIDERS: PCP Family Medicine; Visit Provider Obstetrics & Gynecology
DX: Z34.82 Encounter for supervision of other normal pregnancy, second trimester (principal)
CPT/HCPCS: 36415; 83036

== ENCOUNTER → 2021-06-17 | Outpatient (CLI) | payer OTHER, SELFPAY ==
[2021-06-17 11:08] LABS: Anion Gap 9 (5-15); BUN 7 mg/dL (7-18); BUN/Creat Ratio 10.3 RATIO (10-20); Calcium,Total 9.1 mg/dL (8.5-10.1); Chloride 105 mmol/L (98-107); Creatinine, Serum 0.68 mg/dL (0.55-1.02); EST Glomerular Filtration Rate 107 mL/min (>60); Est Glom Filt Rate - Afr Amer 130 mL/min (>60); Glucose 204 mg/dL (74-106); Glucose Challenge Gest 1H 50g 204 mg/dL (70-140); Potassium 3.3 mmol/L (3.5-5.1); Sodium Level 135 mmol/L (136-145)
[2021-06-17 11:20] LABS: Hematocrit 37.4 % (37-47); Hemoglobin 12.7 g/dL (12.0-15.0); Mean Corpuscular Hgb 32.5 pg (27.0-32.0); Mean Corpuscular Volume 95.7 fL (81-99); Mean Platelet Vol. 8.9 fl (6.2-12.0); Platelet Count 248 K/mm3 (150-450); RBC Distribution Width CV 13.7 % (11.6-14.6); RBC Distribution Width SD 47.8 fl (35.1-43.9); Red Blood Count 3.91 M/mm3 (4.2-5.4); White Blood Count 9.2 K/mm3 (4.4-11.0)
== END | disposition home or self-care (01) ==
LOC: WOBLAB 10:08
PROVIDERS: PCP Family Medicine; Visit Provider Obstetrics & Gynecology
DX: Z34.83 Encounter for supervision of other normal pregnancy, third trimester (principal); E25.0 Congenital adrenogenital disorders associated with enzyme deficiency
CPT/HCPCS: 36415; 80048; 82950; 85027; 86850

== ENCOUNTER → 2021-08-05 | Outpatient (CLI) | payer OTHER, SELFPAY | END | disposition home or self-care (01) | LOC: LABSPEC 12:07 | PROVIDERS: PCP Family Medicine; Visit Provider Obstetrics & Gynecology | DX: Z36.85 Encounter for antenatal screening for Streptococcus B (principal) | CPT/HCPCS: 87081 ==

== ENCOUNTER 2021-08-23 04:53 | Inpatient (IN) | payer OTHER, SELFPAY ==
[2021-08-23] VITALS (18 sets, daily range): BP systolic 96–143; BP diastolic 41–89; PULSE 62–85; RESP 14–18; TEMP 36.1–36.4; O2SAT 96–98; BMI 34.4
[2021-08-23] MEDS: Lactated Ringers 1,000 ML 999 ML IV (05:10)
[2021-08-23 05:23] LABS: Absolute Lymphocyte Count 2.11 X10^3/uL (0.83-4.51); Absolute Neutrophil Count 6.5 X10^3/uL (2.0-7.7); Basophil# 0.02 X10^3/uL; Basophil% 0.2 % (0-1); Eosinophil# 0.09 X10^3/uL; Eosinophils% 0.9 % (0-5); Hematocrit 37.1 % (37-47); Hemoglobin 12.6 g/dL (12.0-15.0); Lymphocyte # 2.11 X10^3/ul (0.83-4.51); Lymphocyte % 22.2 % (19-41); Mean Corpuscular Hgb 31.7 pg (27.0-32.0); Mean Corpuscular Volume 93.5 fL (81-99); Mean Platelet Vol. 9.4 fl (6.2-12.0); Monocyte% 7.4 % (0-10); NRBC Flagged by Analyzer 0 % (0-5); Neutrophil # 6.54 X10^3/uL (2.7-7.7); Neutrophil % 68.7 % (47-70); Platelet Count 246 K/mm3 (150-450); RBC Distribution Width CV 13.2 % (11.6-14.6); RBC Distribution Width SD 45.3 fl (35.1-43.9); Red Blood Count 3.97 M/mm3 (4.2-5.4); White Blood Count 9.5 K/mm3 (4.4-11.0)
[2021-08-23] MEDS: Acetaminophen 500 MG Tablet 1000 MG PO ×3 (06:03→20:46)
[2021-08-23] MEDS: Lactated Ringers 1,000 ML 150 ML IV (06:10)
[2021-08-23 06:25] LABS: Bedside Glucose 82 mg/dL (74-106)
[2021-08-23] MEDS: Sodium Citrate/Citric Acid 30 ML UDC PO (07:13)
[2021-08-23] MEDS: Cefazolin 2 GM in 0.9% Normal Saline 100 ML IV (07:33)
[2021-08-23] MEDS: Hydrocortisone Sod Succinate 100 MG/2 ML Vial 50 MG IV (07:50)
--- NOTE | 2021-08-23 07:50 | HP.PCM.OB_ITS ---
HPI - General General Date of Admission: 08/23/21 Date of Service: 08/23/21 Chief Complaint: scheduled HPI Narrative SHANITA MELARA, is a 31 F who presents at 39 weeks gestation (NEGRITO 08/30/21) for scheduled repeat section. [facility] Medical History (Updated 08/23/21 @ 09:[address] Noemy Silva MD) Gestational diabetes History of blood transfusion Oligohydramnios hemorrhage Home Medications hydrocortisone 20 mg tablet 50 mg PO TID Check with primary doctor 08/23/21 [His tory Last Taken Unknown] [id number]-[id number]-[id number] 1 mg tablet 1 tab PO DAILY Check with primary doctor 08/23/21 [History Last Taken Unknown] Allergy/AdvReac Type Severity Reaction Status Date / Time No Known Allergies Allergy Verified 08/23/21 05:07 Surgical History (Updated 08/23/21 @ 07:[address] Noemy Silva MD) Previous section Social History Smoking Status: Former smoker History 2 Elective abortions Hx Para 1 Spontaneous abortions Hx # Term Pregnancies Ectopic pregnancies Hx # Pregnancies Multiple births # of living children 1 NST FHR Rate Baby A Baseline: 125 Variability:: Moderate Accelerations:: 15 x 15 Decelerations:: None NST Reactive:: Yes FHR Category:: Category I Uterine Activity:: 0/10 Vital Signs Vital Signs Vital Signs: 08/23/21 05:11 Temperature 97.0 F L Temperature Source Temporal Pulse Rate 85 Respiratory Rate 18 Blood Pressure 143/89 H Blood Pressure Mean 107 Blood Pressure Source Monitor Blood Pressure Position Semi-Fowlers Blood Pressure Location Right Arm Pulse Ox 98 Oxygen Delivery Method Room Air Weight Weight: 82.735 kg Body Mass Index (BMI) 34.4 Physical Exam Const alert, oriented x3 and no apparent distress HEENT normocephalic Resp normal respiratory effort, normal air movement and clear to auscultation bilaterally Cardio regular rate and regular rhythm GI normal to inspection, nondistended, normoactive bowel sounds, soft to palpation, non-tender and non-distended Inspection: gravid Labs Labs Labs: Blood Type O NEGATIVE Antibody Screen NEGATIVE Hct 37.1 % (37-47) Hgb 12.6 g/dL (12.0-15.0) Syphilis Total Ab Non-reactive Rubella IgG Antibody Reactive (Nonreactive) Hep Bs Antigen Non-Reactive (Nonreactive) Chlamydia DNA (ALYSSA) Negative (Negative) Neisseria gonorrhoeae DNA (ALYSSA) Negative (Negative) HIV 1&2 Antibody Non-Reactive (Nonreactive) Glucose 1 Hr 50 gm 204 mg/dL (70-140) H Group B Strep DNA POSITIVE (Negative) H Rhogam given: No Assessment & Plan (1) 39 weeks gestation of : PLAN: Proceed with repeat section as planned (2) Gestational diabetes: PLAN: well controlled hx chronic steroids for CAH
[2021-08-23] MEDS: Oxytocin 30 units/NS 500 ml 30 UNITS/500 ML IV.SOLN 167 UNITS IV (09:17)
[2021-08-23] MEDS: 0.9% Saline Lock 10 ML Syringe IV ×2 (10:21→23:00)
[2021-08-23] MEDS: Ketorolac 30 MG/ML Syringe IV ×3 (10:21→22:59)
[2021-08-23 10:35] LABS: Bedside Glucose 94 mg/dL (74-106)
--- NOTE | 2021-08-23 10:49 | NURSING ---
Addendum entered by Beulah Porter 08/23/21 10:51: addendum: Bovie Ligasure Machine number charted incorrectly, correct number [id number] Original Note: cut and coag increased to 50/50 respectively during surgery. Ligasure bovie machine number [id number] used for surgery
--- NOTE | 2021-08-23 11:35 | NURSING ---
Patient was placed on three lead ECG machine for duration of post surgical recovery. Rate remained regular and WNL. Unable to print ECG strip for chart.
[2021-08-23] MEDS: Lactated Ringers 1,000 ML 100 ML IV (12:54)
[2021-08-23] MEDS: Hydrocortisone 10 MG Tablet 15 MG PO ×2 (14:10→22:58)
[2021-08-23] MEDS: Hydrocortisone Sod Succinate 100 MG/2 ML Vial 25 MG IV ×2 (14:11→22:58)
[2021-08-23] MEDS: Cefazolin 1 GM/50 ML BAG IV ×2 (14:44→22:58)
[2021-08-23] MEDS: Ondansetron 4 MG/2 ML Vial IV (14:59)
--- NOTE | 2021-08-23 20:52 | OP.PCM_ITS ---
Assessment & Plan (1) 39 weeks gestation of : (2) Gestational diabetes: Details Operative Information Date of Procedure: 08/23/21 Pre-Operative Diagnosis: 1. 39 weeks gestation 2. Prior section Post-Operative Diagnosis: 1. 39 weeks gestation 2. Prior section 3. Intra-abdominal adhesions Indications for : Repeat Elective Indications Narrative: 31-year-old 2 para 1-0-0-1 presents at 39 weeks gestational age for scheduled repeat section. Her was complicated by history of congenital adrenal hyperplasia requiring chronic steroid use as well as gestational diabetes that was diet-controlled. Procedural risks, benefits, indications and alternatives were reviewed and patient opted to proceed. Classification: Scheduled Procedure Type: low transverse gift wrapper #1: Lyssa Delgado Type of Anesthesia: Spinal Anesthesiologist: Ashish Romero Antibiotic Given: Ancef 2 grams IV x1 Drain: Antonio to straight drain Estimated Blood Loss: 700ml Fluids Replaced: 1500ml Findings Description of Procedure: Procedures performed: 1. Repeat low-transverse section 2. Adhesiolysis Patient was brought to the operating room and signed in was performed. She is placed in the dorsal supine position and Antonio catheter was placed. The abdomen was prepped and draped in sterile fashion and the spinal was found to be adequate. Stress dose steroids, IV Ancef and tranexamic acid were administered. A Pfannenstiel incision was made using a scalpel and brought down to incise the subcutaneous tissue and rectus fascia at the midline. Subcutaneous tissue was bluntly dissected off the fascia laterally. The fascial incision was dissected laterally and cephalad using curved Márquez scissors. The superior leaflet of the rectus fascia was grasped using Bennett clamps and bluntly dissected and sharply dissected from the underlying rectus muscle. In a similar fashion the inferior rectus fascia was dissected from the underlying muscle. The rectus muscles were bluntly at the midline. The perito neum was identified and entered [sharply]. There was significant adhesion of the omentum to the bladder apex preventing exposure to the lower uterine segment. The omental adhesion was serially doubly clamped and cut with suture ligation using 2-0 Vicryl. The lower uterine segment was identified with residual omental adhesion of scoring portions of the vesicouterine fold. With sharp dissection the fold was identified, incised and a bladder flap created. Bladder blade was then repositioned to the abdomen. A low transverse hysterotomy was made using the [Metzenbaum scissors] to level of the membranes. The hysterotomy was extended bluntly cephalad and caudad. The membranes were then ruptured revealing clear fluid. The head was elevated and brought to the level of the hysterotomy and the infant delivered revealing vigorous [female] infant. The cord was doubly clamped and cut after 60 seconds. The was passed to awaiting [nursery personnel]. The placenta was [expressed] from the uterus and appeared intact on inspection. The uterus was exteriorized and cleared of debris. The hysterotomy was then repaired using 0 Vicryl running lock suture. A second imbricating layer was also placed for additional hemostasis. Additional bleeding from the right uterus near the proximal insertion of the round ligament persisted despite 0 Vicryl figure of 8 placement and was subsequently controlled using a proximal round ligament suture ligature of 0 Vicryl. The uterus and adnexa were returned to the abdomen and the bladder blade repositioned. Miquel was placed along the incision for additional hemostasis with hemostasis obtained. The bladder blade was removed. The anterior cul-de-sac was cleared of debris. The peritoneum and rectus muscles were reapproximated using 2-0 Vicryl running suture. The rectus fascia was closed using 0 strata fix running suture. The subcutaneous capillary bleeding controlled using the Bovie device. The inferior uterine scar was undermined subcutaneously with release of the skin and subcu. The subcutaneous tissue was reapproximated using 2-0 Vicryl. The skin was closed using 4-0 Monocryl subcuticularly by the SHIPPING AND RECEIVING SPECIALIST under my supervision. A silver Mepilex dressing was placed over the incision. The fundus was firm. The patient was then transferred to the recovery room without complication. Sponge, instrument, and needle counts were correct ?2. Presentation: Positive for Vertex Amniotic Membrane Rupture Type: Artificial Amniotic Fluid Description: Clear Placental Delivery Description: Expressed Placenta Disposition: [facility] Cord Vessel Description: 3 Vessels Cord Entanglement: Around neck x 1, loose Infant A Gender: Female (1 minute): 8 (5 minute): 9 Delayed Cord Clamping: Yes Complications Risks of Surgery Discussed w/Patient: Bleeding, Anesthesia Risks, Infection, Need for Future C-Sections and Injury to surrounding structure(s) including bowel and bladder
[2021-08-24] MEDS: Acetaminophen 500 MG Tablet 1000 MG PO ×2 (02:45→08:40)
[2021-08-24 04:00] VITALS: BP 108/56; PULSE 72; RESP 18; TEMP 36.5; O2SAT 95
[2021-08-24] MEDS: Ketorolac 30 MG/ML Syringe IV (05:00)
--- NOTE | 2021-08-24 06:08 | PCM.PN.OB ---
Subjective Subjective Denies painfulness. OOB, ambulating and voiding without difficulty. No flatus yet. Had emesis yesterday, last at 5pm, now resolved w/o nausea. Denies heavy lochia. She is . Objective Data Objective Data Vital Signs: Vital Signs Temp Pulse Resp BP Pulse Ox O2 Del Method 97.7 F L 72 18 108/56 L 95 Room Air 08/24/21 04:00 08/24/21 04:00 08/24/21 04:00 08/24/21 04:00 08/24/21 04:00 08/24/21 04:00 Oxygen Delivery Method Room Air Weight: 82.735 kg Body Mass Index (BMI) 34.4 Intake & Output: Intake and Output for Last 24 Hours 08/22/21 08/23/21 08/24/21 23:59 23:59 23:59 Intake Total 2159.85 / 2159.85 Output Total 2300 / 2300 Balance -140.15 / -140.15 Lab / Micro Data Result Diagrams: 08/23/21 05:10 Labs: Laboratory Results - last 24 hr 08/23/21 05:10: Blood Type O NEGATIVE, Antibody Screen NEGATIVE 08/23/21 05:25: POC Glucose 82 08/23/21 09:52: POC Glucose 94 Micro: Microbiology 08/23/21 05:20 Nasal Secretion SARS-CoV-2 Antigen (Rapid) - Final Physical Exam Const alert, oriented x3 and no apparent distress Resp normal respiratory effort, normal air movement and clear to auscultation bilaterally Cardio regular rate, regular rhythm, S1 normal heart sound and S2 normal heart sound GI normal to inspection, nondistended, normoactive bowel sounds, soft to palpation, non-tender and non-distended GI Narrative: incisional dressing c/d/i Manual OB Exam: other lochia scant Uterus Palpation: uterus fundus firm Extremity no calf tenderness and no pedal edema Assessment & Plan (1) Gestational diabetes: PLAN: Fasting glucose 101 this morning No further monitoring (2) Congenital adrenal hyperplasia: PLAN: Chronic steroids Pt prefers switch to Dexamethasone as soon as possible Discussed safety profile of hydrocortisone versus Dexamethasone for Will obtain consultation (3) delivery delivered: PLAN: Routine postop care
--- NOTE | 2021-08-24 06:14 | DS.PCM_ITS ---
Providers Date of Admission: 08/23/21 Date of Discharge: 08/24/21 Primary Care Physician: Dr. Kohli Reason For Visit: REPEAT C SECTION/C SECTION DELIVERY Diagnosis Discharge Diagnosis (1) Congenital adrenal hyperplasia: Status: Inactive Code(s): E25.0 - Congenital adrenogenital disorders associated with enzyme deficiency Plan: Chronic steroids Pt prefers switch to Dexamethasone as soon as possible Discussed safety profile of hydrocortisone versus Dexamethasone for breastfeedi ng Will obtain consultation Outpatient follow up with Dr. Fair (2) delivery delivered: Status: Acute Code(s): O82 - Encounter for delivery without indication Plan: Routine postop care Rh negative - infant also Rh neg Medications at Discharge Home Medications rgzzkydo-pwx-Bl-FA 1 mg tablet 1 tab PO DAILY Check with primary doctor 08/23/21 hydrocortisone 10 mg tablet 15 mg PO TID #0 tabs 08/24/21 ibuprofen 600 mg tablet 600 mg PO Q8H PRN PRN pain #30 tabs 08/24/21 oxycodone 5 mg tablet 5 mg PO Q6H PRN PRN Pain Score 4-10 5 days #15 tabs 0 08/24/21 Hospital Course Operations section Procedures None Summary of Care Provided Hospital Course: 31yo admitted at 39 weeks gestation for scheduled repeat section. was complicated by history of congenital adrenal hyperplasia requiring hydrocortisone and gestational diabetes - diet controlled. She had a low transverse section as scheduled and stress dose steroids were administered. She was discharged to home on post-op day 1. Physical Exam Const alert, oriented x3 and no apparent distress Resp normal respiratory effort, normal air movement and clear to auscultation bilaterally Cardio regular rate, regular rhythm, S1 normal heart sound and S2 normal heart sound GI normal to inspection, nondistended, normoactive bowel sounds, soft to palpation, non-tender and non-distended GI Narrative: incisional dressing c/d/i Manual OB Exam: other lochia scant Uterus Palpation: uterus fundus firm Extremity no calf tenderness and no pedal edema Weight / BMI Weight Weight: 82.735 kg Body Mass Index (BMI) 34.4 ABG / Lab / Microbiology Data Result Diagrams: 08/23/21 05:10 Laboratory: Laboratory Results - last 24 hr 08/23/21 05:10: Blood Type O NEGATIVE, Antibody Screen NEGATIVE 08/23/21 05:25: POC Glucose 82 07/19/22 09:52: POC Glucose 94 Microbiology: Microbiology 08/23/21 05:20 Nasal Secretion SARS-CoV-2 Antigen (Rapid) - Final D/C Instructions Discharge Diet: No restrictions Discharge Activity: Return to Normal Activity and May Shower May resume sexual activity in: 4-6 weeks Lifting Restricted to (Lbs): 10 Call your doctor if you observe: Fever of 101 or Higher, Inability to urinate, Using more than 1 pad per hour, Shortness of breath, Chest pain, Calf discomfort, Uncontrolled pain and - (Persistent or severe headache) Suture Line Care: Avoid Pulling/Pushing Remove Dressing in: 4 days Cleanse incision/area with: Soap & Water Please Follow Up With: Bradford Domingo MD When: 2 weeks for incision check 6 weeks for visit Meaningful Use Info Meaningful Use Diagnoses (Choose all that apply): None applicable Discharge Plan Admission Admit Date/Time: 08/23/21 04:53 Primary Reason for Your Visit: delivery Attending Provider: Noemy Carty Primary Care Provider: Brian Veliz Discharge Orders/Prescriptions Prescriptions: New hydrocortisone 10 mg Tablet 15 mg PO TID Qty: 0 0RF ibuprofen 600 mg Tablet 600 mg PO Q8H PRN PRN (Reason: pain) Qty: 30 0RF oxycodone 5 mg Tablet 5 mg PO Q6H PRN PRN (Reason: Pain Score 4-10) 5 Days Qty: 15 0RF Continued vjpteplv-yjw-Za-FA 1 mg Tablet 1 tab PO DAILY Discontinued hydrocortisone 20 mg Tablet 50 mg PO TID Referrals / Follow Up: Tio Kohli MD [NON-STAFF] - Within 3 Months Disposition Disposition (needs filled in before D/C Order can be placed): Home, Self Care
[2021-08-24 06:16] LABS: Bedside Glucose 101 mg/dL (74-106)
[2021-08-24] MEDS: Hydrocortisone Sod Succinate 100 MG/2 ML Vial 25 MG IV (07:03)
[2021-08-24] MEDS: Hydrocortisone 10 MG Tablet 15 MG PO (07:05)
[2021-08-24] MEDS: 0.9% Saline Lock 10 ML Syringe IV (07:06)
[2021-08-24 08:16] VITALS: BP 116/56; PULSE 79; RESP 18; TEMP 36.4; O2SAT 94
[2021-08-24] MEDS: Prenatal Vits Tablet 1 TABLET PO (08:39)
[2021-08-24] MEDS: Senna/Docusate Sodium 1 Tablet PO (08:40)
[2021-08-24 09:49] LABS: White Blood Count 10.4 K/mm3 (4.4-11.0)
[2021-08-24 09:52] LABS: Hematocrit 30.7 % (37-47); Hemoglobin 10.5 g/dL (12.0-15.0); Mean Corpuscular Volume 94.2 fL (81-99); Red Blood Count 3.26 M/mm3 (4.2-5.4)
[2021-08-24 09:53] LABS: Mean Corp Hgb Conc 34.2 g/dL (32-36); Mean Corpuscular Hgb 32.2 pg (27.0-32.0); Mean Platelet Vol. 9.3 fl (6.2-12.0); Platelet Count 221 K/mm3 (150-450); RBC Distribution Width CV 13.2 % (11.6-14.6); RBC Distribution Width SD 45.9 fl (35.1-43.9)
[2021-08-24] MEDS: Ibuprofen 600 MG Tablet PO (10:51)
--- NOTE | 2021-08-24 12:04 | EX.CON.LACT ---
Assessment & Plan Assessment/Plan (1) Care and examination of lactating mother: PLAN: Plan Continue feeding plan as listed above. Discussed Dexamethasone in detail L3 and though limited data compatible with . Educated parents to watch for side effects in baby. Patient plans to talk to PCP as well to collaborate. Follow up with PRN. HPI Consult Data Date of Consult: 08/24/21 HPI Narrative Reason for Consultation: Medications and assessment HPI Narrative: SHANITA MELARA, is a 31 F who presents for assessment and medication questions. History provided by the patient. [facility] Medical History (Updated 08/24/21 @ 16:18 by Alexandria Mccormick TILE AND MARBLE SETTER, TILE AND MARBLE SETTER-C) Care and examination of lactating mother Congenital adrenal hyperplasia Gestational diabetes History of blood transfusion Oligohydramnios hemorrhage Home Medications prhsnobb-frs-Wr-FA 1 mg tablet 1 tab PO DAILY Check with primary doctor 08/23/21 [History Last Taken Unknown] hydrocortisone 10 mg tablet 15 mg PO TID #0 tabs 08/24/21 [Rx Last Taken Unknown] ibuprofen 600 mg tablet 600 mg PO Q8H PRN PRN pain #30 tabs 08/24/21 [Rx Last Taken Unknown] oxycodone 5 mg tablet 5 mg PO Q6H PRN PRN Pain Score 4-10 5 days #15 tabs 08/24/21 [Rx Last Taken Unknown] Allergy/AdvReac Type Severity Reaction Status Date / Time No Known Allergies Allergy Verified 08/23/21 05:07 Surgical History (Updated 08/23/21 @ 07:[address] Noemy Silva MD) Previous section Social History Smoking Status: Former smoker ROS Constitutional Constitutional: Denies fever(s) or lethargy Integumentary Integumentary: Reports other Details: q2-5 hours, 10-15 minutes per side , able to hand express colostrum, patient has access to pump at home (sister in laws) ; Denies rash Endocrine Endocrinology: Reports other Details: hx congenital adrenal hyperplasia - would like to start back on dexamethasone (currently taking hydrocortisone)- patient has questions about medication and Exam General alert Respiratory Respiratory: normal respiratory effort Skin normal color and Negative for rash bilateral breasts soft, bilateral nipples slight reddened with no cracking or discharge present Feeding Assessment Feeding Assessment Feed Type: Breastmilk [place] Feeding Methods: Breast Mother/Baby breast-feeding benefits reinforced: Yes Position: Football and Cross cradle [place] Feeding Duration (minutes): 24 Feeding Aids Currently Using: Mother hand expression Latch Score L - Latch Latch: Grasps breast, tongue down, lips flanged, rhymic sucking (2) A - Audible Swallowing Audible Swallowing: Spontaneous & intermittent <24 hrs, spontaneous & frequent >24 hrs (2) T - Type of Nipple Type of Nipple: Everted (after stimulation) (2) C - Comfort (Breast/Nipple) Comfort (Breast/Nipple): Filling/reddened/small blisters/bruises/mild/moderate discomfort (1) H - Hold (Positioning) Hold (Positioning): Minimal assist, teach/hold one side and mother does other (1) Total Score Total Score:: 8 Observation Feeding Observed:: Yes IBCLC Feeding Assessment Feeding Assessment Mother's feeding plans during 's hospitalization: Breastfeed Feeding Plan Feeding Plan: Continue feeding on demand q2-3 hours, goal 8 feeds per day Recommendations: Massage when feeding and hand express after feeds to help bring milk in Interventions IBCLC/CLC Interventions: Hand expression and Breast Massage Education IBCLC/CLC Education: How to perform hand expression, [id number], Feeding on demand and Keep a feeding log Charges/Coding Visit Charges Inpatient E&M: 66091 Init Hosp L1
--- NOTE | 2021-08-24 13:00 | NURSING ---
Pt has follow up appointment with [facility] in 2 weeks.
[2021-08-24 13:40] VITALS: BP 119/58; PULSE 82; RESP 16; TEMP 36.7; O2SAT 95
== END 2021-08-24 14:20 | disposition home or self-care (01) | DRG 788 ==
PROVIDERS: Admitting Provider Obstetrics & Gynecology; PCP Family Medicine; Visit Provider Obstetrics & Gynecology
PROC: 10D00Z1 Extraction of Products of Conception, Low, Open Approach (ICD-10-PCS; CPT 59514; principal; 2021-08-23 07:15)
DX: O24.429 Gestational diabetes mellitus in childbirth, unspecified control (principal); E25.0 Congenital adrenogenital disorders associated with enzyme deficiency; Z37.0 Single live birth; Z3A.39 39 weeks gestation of pregnancy; Z87.891 Personal history of nicotine dependence; O99.284 Endocrine, nutritional and metabolic diseases complicating childbirth; Z79.52 Long term (current) use of systemic steroids; Z39.1 Encounter for care and examination of lactating mother; O69.81X0 Labor and delivery complicated by cord around neck, without compression, not applicable or unspecified; O34.219 Maternal care for unspecified type scar from previous cesarean delivery
CPT/HCPCS: 59050; 82962; 85025; 85027; 86850; 86900; 86901; 87426; 99218; J7120; A4216; G0378; J2405

== ENCOUNTER 2022-05-11 13:01 | Inpatient (IN) | payer OTHER, SELFPAY ==
[2022-05-11 13:02] VITALS: BP 120/72; PULSE 135; RESP 16; TEMP 37.7; O2SAT 97
--- NOTE | 2022-05-11 13:38 | CT_ITS ---
STUDY: CT SOFT TISSUE NECK WITH CONTRAST REASON FOR EXAM: Female, 32 years old. Throat swelling. POSITIVE STREP RADIATION DOSAGE (If Supplied By Facility): CTDIvol = ( 19.06 ) mGy, DLP = ( 500.06 ) mGycm TECHNIQUE: The patient was scanned in a multi-detector CT scanner. High resolution transaxial imaging was performed following intravenous administration of IV 75mL Isovue-370. Sagittal and coronal images were reconstructed. Individualized dose optimization techniques were used for this CT. COMPARISON: None. FINDINGS: Normal bilateral parotid glands. Normal bilateral site specialist spaces. Normal bilateral parapharyngeal spaces. Normal bilateral carotid spaces. Normal bilateral sublingual and submandibular glands and spaces. Normal visualized nasopharynx. Normal retropharyngeal space. Normal perivertebral space. There is enlargement of the palatine tonsils worse on the left side. The enlargement is heterogeneous in appearance. There is a 1 cm x 0.8 cm lucent area in the anterior aspect of the left palatine tonsil suggestive of possible early abscess. A similar appearing hypodensity is seen in the inferior aspect of the right [place] tonsils measuring 5.6 mm there The visualized tongue, tongue base and oropharynx are normal. The visualized cervical lymph nodes (levels I-) are within normal size limits, and maintain normal morphology. There is no demonstrated solid or cystic mass lesion. There is no abnormal contrast enhancement. Normal epiglottis, bilateral vallecula and hypopharynx. The pre-epiglottic and paraglottic adipose spaces are normal. Normal visualized bilateral piriform sinuses, aryepiglottic folds, vocal cords, and arytenoid-cricoid articulations. Normal subglottic trachea. Normal bilateral lobes of the thyroid gland. Normal visualized pulmonary apices. Normal visualized paranasal sinuses. Normal visualized cervical spine. CT/Soft Tissue Neck WITH Contrast IMPRESSION: Moderate degree of enlargement of the palatine tonsils worse on the left side with areas of decreased attenuation suggestive of possible early abscess formation as described. Electronically Signed: Angel Awad MD at 14:41 EDT ,
--- NOTE | 2022-05-11 13:39 | EX.ED.DYSGE1 ---
HPI History of Present Illness Chief Complaint: Fever Narrative Narrative: 32-year-old female presenting with fevers, sore throat, nausea/vomiting. She states that initially she had a sore throat. This has progressed. She now developed a fever which was 101 yesterday. It is as high as 104 today. She is been treating this at home. She developed nausea and vomiting overnight. She think she is dehydrated. She is having trouble ambulating. She feels generally weak and lightheaded. PFSH PFSH Medical History (Updated 05/11/22 @ 16:[address] Mamie Kuo MD) Adrenal insufficiency Former tobacco use Gestational diabetes History of blood transfusion Obesity Oligohydramnios hemorrhage Home Medications hydrocortisone 10 mg tablet 15 mg PO TID #0 tabs 08/24/21 [Rx Last Taken Unknown] Allergy/AdvReac Type Severity Reaction Status Date / Time No Known Allergies Allergy Verified 08/23/21 05:07 Family History (Updated 05/11/22 @ 16:[address] Mamie Kuo MD) Father CVA (cerebral vascular accident) Hypertension Family History other Surgical History (Updated 05/11/22 @ 16:[address] Mamie Kuo MD) Previous section Social History (Updated 05/11/22 @ 16:[address] Mamie Kuo MD) household members: spouse and children Smoking Status: Former smoker how long ago did patient quit smoking: Quit ~ 3 months prior, smoked 1/2 ppd. alcohol intake: never substance use type: does not use ROS ROS ED Constitutional Constitutional ED: Reports chills and fever(s) Eyes Eyes: Denies change in vision or diplopia ENT ENT ED: Reports sore throat; Denies rhinorrhea Cardiovascular Cardiovascular: Denies chest pain Respiratory/Chest Respiratory/Chest: Denies cough or dyspnea Gastrointestinal Gastrointestinal: Reports nausea and vomiting Genitourinary Genitourinary ED: Denies dysuria or hematuria Musculoskeletal Musculoskeletal: Denies arthralgias or back pain Integumentary Denies abscess Neurologic Neurologic: Denies headache(s) Psychiatric Psychiatric: Denies anxiety or depression EXAM Physical Exam Const Vital Signs: 05/11/22 13:02 05/11/22 14:25 05/11/22 15:25 Temperature 99.8 F H 103.1 F H 100.4 F H Temperature Source Temporal Oral Oral Pulse Rate 135 H 128 H 116 H Respiratory Rate 16 18 18 Blood Pressure 120/72 124/69 H 108/52 L Blood Pressure Mean 88 87 70 Pulse Ox 97 98 95 Oxygen Delivery Method Room Air Room Air Room Air 05/11/22 16:13 Temperature 99.7 F H Temperature Source Oral Pulse Rate 109 H Respiratory Rate 16 Blood Pressure 112/55 L Blood Pressure Mean 74 Pulse Ox 98 Oxygen Delivery Method Room Air Positive well nourished General Appearance ED: NAD HEENT Reports moist mucous membranes normocephalic Mouth ED: Yes lips normal, Yes tongue normal and Yes moist mucous membranes normal Mouth: lips normal and tongue normal Throat: posterior oropharynx abnormal Positive for edema, erythema and exudates MDM MDM MDM Narrative Medical decision making narrative: Patient presenting with sore throat. She is a lot of edema, and exudates. Initially she was afebrile but tachycardic. She states she think she is hydrated she has been vomiting all night. She has had a fever at home. Initially attained a CBC to assess for white blood cell count, hemoglobin, platelets, differential. BMP to assess renal function electrolytes to see if he was dehydrated. Patient was given a liter of normal saline, morphine, Zofran. CBC shows a leukocytosis of 17.8. BMP shows creatinine increased to 1.15. Patient given a second liter of normal saline. At this point the patient developed a fever and was given Tylenol.Her temperature was 103.1. She became tachycardic again. I then added on more lab work to a septic work-up. Lactic acid was normal. PT slightly prolonged. INR normal. Patient was pancultured. Urinalysis pending. CT soft tissue neck shows enlarged tonsils with possible early abscess formation. I discussed the case with Dr. Gonzalez who recommended admission to medicine. He recommended Unasyn and dexamethasone. He did independently review the CT soft tissue neck with IV contrast that it does not show anything to him that needs to be drained. Patient discussed with hospitalist for admission. Impression: 1. Sepsis 2. Strep pharyngitis Lab Data Attestation: I reviewed the patient's lab results. Labs: Laboratory Results - last 24 hr 05/11/22 05/11/22 05/11/22 14:05 14:05 15:08 WBC 17.8 H RBC 4.50 Hgb 14.6 Hct 42.3 MCV 94.0 MCH 32.4 H MCHC 34.5 RDW Std Deviation 44.3 H RDW Coeff of Elizabeth 12.8 Plt Count 250 MPV 9.0 Immature Gran % (Auto) 1.000 H Neut % (Auto) 78.9 H Lymph % (Auto) 12.7 L [place] % (Auto) 6.9 Eos % (Auto) 0.1 Baso % (Auto) 0.4 Absolute Neuts (auto) 14.0 H Absolute Lymphs (auto) 2.26 Nucleated RBC % 0 PT Cancelled INR Cancelled Sodium 131 L Potassium 3.4 L Chloride 98 Carbon Dioxide 25.0 Anion Gap 8 BUN 12 Creatinine 1.15 H Estim Creat Clear Calc 53.00 Est GFR (MDRD) Af Amer 70 Est GFR (MDRD) Non-Af 58 L BUN/Creatinine Ratio 10.4 Glucose 108 H Lactic Acid Calcium 8.9 05/11/22 05/11/22 15:08 16:08 WBC RBC Hgb Hct MCV MCH MCHC RDW Std Deviation RDW Coeff of Elizabeth Plt Count MPV Immature Gran % (Auto) Neut % (Auto) Lymph % (Auto) [place] % (Auto) Eos % (Auto) Baso % (Auto) Absolute Neuts (auto) Absolute Lymphs (auto) Nucleated RBC % PT 16.3 H INR 1.3 Sodium Potassium Chloride Carbon Dioxide Anion Gap BUN Creatinine Estim Creat Clear Calc Est GFR (MDRD) Af Amer Est GFR (MDRD) Non-Af BUN/Creatinine Ratio Glucose Lactic Acid 1.0 Calcium Radiography Diagnostic Testing: Clinical Impression(s) from Imaging Studies Soft Tissue Neck CT 05/11/22 13:38 IMPRESSION: Moderate degree of enlargement of the palatine tonsils worse on the left side with areas of decreased attenuation suggestive of possible early abscess formation as described. Electronically Signed: Angel Awad MD at 14:41 EDT , Discharge Plan Triage Chief Complaint: Fever ED Provider: Alberto Ashford Dx/Rx/DC Orders Primary Care Provider: Brian Veliz
[2022-05-11] MEDS: 0.9% Normal Saline 1,000 ML 999 ML IV ×3 (14:04→15:40)
[2022-05-11] MEDS: dexAMETHasone 10 MG/ML Vial IV ×2 (14:05→18:51)
[2022-05-11] MEDS: Ondansetron 4 MG/2 ML Vial IV (14:05)
[2022-05-11] MEDS: Morphine 4 MG/ML Syringe IV (14:06)
[2022-05-11 14:09] VITALS: BMI 32.5
[2022-05-11 14:18] LABS: Absolute Lymphocyte Count 2.26 X10^3/uL (0.83-4.51); Basophil# 0.07 X10^3/uL; Basophil% 0.4 % (0-1); Eosinophil# 0.02 X10^3/uL; Eosinophils% 0.1 % (0-5); Hematocrit 42.3 % (37-47); Hemoglobin 14.6 g/dL (12.0-15.0); Lymphocyte # 2.26 X10^3/ul (0.83-4.51); Lymphocyte % 12.7 % (19-41); Mean Corp Hgb Conc 34.5 g/dL (32-36); Mean Corpuscular Hgb 32.4 pg (27.0-32.0); Monocyte# 1.22 X10^3/uL; Monocyte% 6.9 % (0-10); NRBC Flagged by Analyzer 0 % (0-5); Neutrophil # 14.01 X10^3/uL (2.7-7.7); Neutrophil % 78.9 % (47-70); Platelet Count 250 K/mm3 (150-450); RBC Distribution Width CV 12.8 % (11.6-14.6); RBC Distribution Width SD 44.3 fl (35.1-43.9); White Blood Count 17.8 K/mm3 (4.4-11.0)
[2022-05-11 14:25] VITALS: BP 124/69; PULSE 128; RESP 18; TEMP 39.5; O2SAT 98
[2022-05-11 14:33] LABS: Anion Gap 8 (5-15); BUN 12 mg/dL (7-18); BUN/Creat Ratio 10.4 RATIO (10-20); Calcium,Total 8.9 mg/dL (8.5-10.1); Chloride 98 mmol/L (98-107); Creatinine, Serum 1.15 mg/dL (0.55-1.02); EST Glomerular Filtration Rate 58 mL/min (>60); Est Glom Filt Rate - Afr Amer 70 mL/min (>60); Glucose 108 mg/dL (74-106); Potassium 3.4 mmol/L (3.5-5.1); Sodium Level 131 mmol/L (136-145)
[2022-05-11] MEDS: Acetaminophen 500 MG Tablet 1000 MG PO (14:40)
[2022-05-11 15:25] VITALS: BP 108/52; PULSE 116; RESP 18; TEMP 38; O2SAT 95
--- NOTE | 2022-05-11 15:43 | HP.PCM_ITS ---
HPI - General General Date of Admission: 05/11/22 Date of Service: 05/11/22 Chief Complaint: Fever, sore throat, N/V. HPI Narrative The patient is a 32 y/o F w/ PMHx: Obesity, Former tobacco use, Adrenal insufficiency on chronic steroids who presents to the [facility] ED on 05/11/22 with history of onset fever, sore throat, nausea and emesis, difficulty swallowing liquids secondary to throat pain which has progressively worsening over the last 48 hours. She notes temperature paresh today up to 104. She admits to associated lightheadedness, dizziness with ambulator attempts and profound weakness prompting eventual ED evaluation. She denies any other ill contacts in the home including her children. She notes she was prior on hydrocortisone but was transitioned and will notify staff of the medication once verified. Work-up in the ED included T103.1, heart rate 128, BP 124/69, respiratory rate 18, 98% on room air, CBC with WBC 17.8, hemoglobin 14.6, platelet 250 with significant left shift, BMP with sodium 131, potassium 3.4, BUN/creatinine 12/1.15, glucose 108, lactic acid pending upon requested evaluation of patient, CT soft tissue neck with moderate degree of enlargement of the pontine tonsils worse on the left side with areas of decreased attenuation suggesting possible early abscess formation, rapid strep a positive, blood culture x2 pending per ED. in the ED patient administered Tylenol 1000 mg p.o. x1, Decadron 10 mg IV x1, Unasyn, morphine 4 mg IV x1, Zofran 4 mg IV x1 in addition to 3 L normal saline (30 cc/kg bolus). ENT Dr. Gonzalez with continued IV Unasyn as well as IV Decadron given appearance and AI status with no current OR plans. COUNT INCLUDES [facility] Medical History (Updated 05/11/22 @ 16:[address] Mamie Kuo MD) Adrenal insufficiency Former tobacco use Gestational diabetes History of blood transfusion Obesity Oligohydramnios hemorrhage Home Medications hydrocortisone 10 mg tablet 15 mg PO TID #0 tabs 08/24/21 [Rx Last Taken Unknown] Allergy/AdvReac Type Severity Reaction Status Date / Time No Known Allergies Allergy Verified 08/23/21 05:07 Family History (Updated 05/11/22 @ 16:[address] Mamie Kuo MD) Father CVA (cerebral vascular accident) Hypertension other (Patient denies any marked maternal family history including HD, DM, CA.) Surgical History (Updated 05/11/22 @ 16:[address] Mamie Kuo MD) Previous section Social History (Updated 05/11/22 @ 16:[address] Mamie Kuo MD) household members: spouse and children Smoking Status: Former smoker how long ago did patient quit smoking: Quit ~ 3 months prior, smoked 1/2 ppd. alcohol intake: never substance use type: does not use ROS ROS Narrative Admission Review of Systems: CONSTITUTIONAL: No weight loss, + fever, chills, weakness or fatigue. HEENT: + Sore throat, white patches at the back of her throat, headache. Eyes: No visual loss, blurred vision, double vision or yellow sclerae. Ears, Nose, Throat: No hearing loss, sneezing, congestion, runny nose. SKIN: No rash or itching, lesions, wounds. CARDIOVASCULAR: No chest pain, chest pressure or chest discomfort, palpitations, edema, orthopnea, syncopal events. RESPIRATORY: No shortness of breath, cough or sputum, wheezing, hemoptysis. GASTROINTESTINAL: + anorexia, nausea, vomiting. No diarrhea, abdominal pain, melena, BRBPR. GENITOURINARY: No dysuria, frequency, urgency or retention. NEUROLOGICAL: + headache, dizziness, lightheadedness. No syncope, paralysis, ataxia, numbness or tingling in the extremities, focal weakness, change in bowel or bladder control, seizure. MUSCULOSKELETAL: No muscle, back pain, joint pain or stiffness. HEMATOLOGIC: No anemia, bleeding or bruising. LYMPHATICS: No enlarged nodes. No history of splenectomy. PSYCHIATRIC: No history of depression or anxiety. ENDOCRINOLOGIC: + reports of sweating, cold or heat intolerance. No polyuria or polydipsia. ALLERGIES: No history of asthma, hives, eczema or rhinitis. Vital Signs Vital Signs Vital Signs: 05/11/22 13:02 05/11/22 14:25 05/11/22 15:25 Temperature 99.8 F H 103.1 F H 100.4 F H Temperature Source Temporal Oral Oral Pulse Rate 135 H 128 H 116 H Respiratory Rate 16 18 18 Blood Pressure 120/72 124/69 H 108/52 L Blood Pressure Mean 88 87 70 Pulse Ox 97 98 95 Oxygen Delivery Method Room Air Room Air Room Air Weight Weight: 172 lb 2.896 oz Body Mass Index (BMI) 32.5 Physical Exam Narrative Physical Examination: General: Awake, alert, oriented x 3 and cooperative, laying in the ED bed, fatigued and ill-appearing. Skin: Flushed color, normal turgor, no icterus, no cyanosis. HEENT: AT/NC, EOMI, PERRLA, dry MM, significant posterior OP erythema and white exudate with bilateral tonsillar enlargement, cervical lymphadenopathy present, no carotid bruits or JVD noted, no evidence of any airway compromise, managing secretions appropriately. Lungs: Mildly diminished at the bases, moderate effort, no evidence of any respiratory distress, no rales, ronchi or wheezing. Heart: Tachycardic with regular rhythm; no gallop, rub audible. Abdomen: Soft, obese, NTTP, ND, mildly hyperactive BS, no HSM. Extremities: No cyanosis, clubbing, or edema. Neurological: Patient awake, alert, oriented as noted, cognitive function intact; pupils equally reactive to light and accommodation, cranial nerves II- XII grossly normal, moving all 4 extremities, no focal deficits, strength moderately global decrease secondary to acute presentation. Psychiatric: Affect appears fatigued, ill-appearing, no acute evidence of depressive or anxiety feelings. Results Lab / Micro Data Result Diagrams: 05/11/22 14:05 05/11/22 14:05 Labs: Laboratory Results - last 24 hr 05/11/22 14:05: WBC 17.8 H, RBC 4.50, Hgb 14.6, Hct 42.3, MCV 94.0, MCH 32.4 H, MCHC 34.5, RDW Std Deviation 44.3 H, RDW Coeff of Elizabeth 12.8, Plt Count 250, MPV 9.0, Immature Gran % (Auto) 1.000 H, Neut % (Auto) 78.9 H, Lymph % (Auto) 12.7 L , [place] % (Auto) 6.9, Eos % (Auto) 0.1, Baso % (Auto) 0.4, Absolute Neuts (auto) 14.0 H, Absolute Lymphs (auto) 2.26, Nucleated RBC % 0 05/11/22 14:05: Sodium 131 L, Potassium 3.4 L, Chloride 98, Carbon Dioxide 25.0, Anion Gap 8, BUN 12, Creatinine 1.15 H, Estim Creat Clear Calc 53.00, Est GFR (MDRD) Af Amer 70, Est GFR (MDRD) Non-Af 58 L, BUN/Creatinine Ratio 10.4, G lucose 108 H, Calcium 8.9 05/11/22 15:08: PT Cancelled, INR Cancelled Micro: Microbiology 05/11/22 13:55 Interface Orders Group A Streptococcus Rapid Screen - Final Streptococcus Group A Radiology Impression Soft Tissue Neck CT 05/11/22 13:38 IMPRESSION: Moderate degree of enlargement of the palatine tonsils worse on the left side with areas of decreased attenuation suggestive of possible early abscess formation as described. Electronically Signed: Angel Awad MD at 14:41 EDT , Assessment & Plan Assessment/Plan (1) Sepsis: PLAN: Plan The patient is a 32 y/o F w/ PMHx: Obesity, Former tobacco use, Adrenal insufficiency on chronic steroids who presents to the [facility] ED on 05/11/22 with history of onset fever, sore throat, nausea and emesis, difficulty swallowing liquids secondary to throat pain which has progressively worsening over the last 48 hours. #1. Acute Sepsis secondary to Acute Streptococcal Pharyngitis with suspected associated Early Tonsillar abscesses: We will admit to medical surgical telemetry for more close monitoring given septic initial presentation although vital signs already improving with ED interventions, will maintain on IV Unasyn therapy, will continue IV Decadron with initial ED load administered and given septic presentation we will per discussion with ENT plan continuation of decadron 10 mg IV q 8 hours for additional 3 doses and reassessment following for resumption home oral regimen, will have oral BMX liquid to assist with oral discomfort with breakthrough IV and p.o. narcotic regimen as needed, will have as needed antiemetic, continue aggressive IV fluids with repeat CBC, CMP in a.m. as well as continue aspiration precautions. #2. Hyponatremia, likely hypovolemic: Admission sodium 131, will continue aggressive hydration with repeat CMP in AM. #3. Hypokalemia: Admission K+ 3.4, magnesium level requested, supplementation given, repeat level in AM. #4. Acute kidney injury: Secondary to acute presentation number 1 and poor intake. Admission BUN/Cr 12/1.15, prior baseline creatinine noted to be 0.6. Will hydrate, hold nephrotoxic medications and repeat chemistry in AM. #5. Adrenal insufficiency: Patient is chronically on 3 times daily hydrocortisone regimen, administer Decadron load in the ED, given septic presentation we will per discussion with ENT will plan continuation of decadron 10 mg IV q 8 hours for additional 3 doses and reassessment following for resumption home oral regimen. #6. Obesity: Weight loss and lifestyle changes encouraged. #7. Former tobacco use: Encourage continued tobacco cessation. #8. DVT prophylaxis: Low risk, encourage ambulation. #9. CODE STATUS: Full code. Admission Evaluation Time spent evaluating chart, patient history, patient evaluation, care planning and discussion with specialists: 60 minutes. Charges/Coding Visit Charges Inpatient E&M: 48679 Init Hosp L2
[2022-05-11] MEDS: fentaNYL 100 MCG/2 ML Ampul 25 MCG IV (16:05)
[2022-05-11 16:13] VITALS: BP 112/55; PULSE 109; RESP 16; TEMP 37.6; O2SAT 98
[2022-05-11 16:24] LABS: International Normalized Ratio 1.3; Prothrombin Time (Protime)PT. 16.3 SECONDS (11.7-14.9)
[2022-05-11 16:41] LABS: Magnesium 1.7 mg/dL (1.6-2.6)
[2022-05-11 17:20] VITALS: BMI 33.0
--- NOTE | 2022-05-11 17:36 | PCM.PN.BLA ---
Progress Note Asked to see the patient at the request of Dr. Kuo for tonsillitis and sepsis History of present illness: The patient is a 32-year-old white female who started with a sore throat 2 days ago. Yesterday she started to have a fever up to 104 degrees. She has been vomiting and really been unable to keep her secretions down. She presented to the emergency room where she was found to be tachycardic. Group A strep test was positive. A CT scan of the neck was performed which reveals tonsillitis. She has never had strep or tonsillitis in the past. She denies ever having mono. Medical History?(Updated 05/11/22 @ 16:[address] Mamie Kuo MD) Adrenal insufficiency Former tobacco use Gestational diabetes History of blood transfusion Obesity Oligohydramnios hemorrhage Home Medications hydrocortisone 10 mg tablet 15 mg PO TID #0 tabs 08/24/21 [Rx Last Taken Unknown] Allergy/AdvReac Type Severity Reaction Status Date / Time No Known Allergies Allergy ? ? Verified 08/23/21 05:07 Family History?(Updated 05/11/22 @ 16:[address] Mamie Kuo MD) Father CVA (cerebral vascular accident) Hypertension other (Patient denies any marked maternal family history including HD, DM, CA.) Surgical History?(Updated 05/11/22 @ 16:[address] Mamie Kuo MD) Previous section Social History?(Updated 05/11/22 @ 16:[address] Mamie Kuo MD) household members:? spouse and children Smoking Status:? Former smoker how long ago did patient quit smoking:? Quit ~ 3 months prior, smoked 1/2 ppd. alcohol intake:? never substance use type:? does not use ROS ROS Narrative Admission Review of Systems: CONSTITUTIONAL: No weight loss, + fever, chills, weakness or fatigue. HEENT: + Sore throat, white patches at the back of her throat, headache. Eyes: No visual loss, blurred vision, double vision or yellow sclerae. Ears, Nose, Throat: No hearing loss, sneezing, congestion, runny nose. SKIN: No rash or itching, lesions, wounds. CARDIOVASCULAR: No chest pain, chest pressure or chest discomfort, palpitations, edema, orthopnea, syncopal events. RESPIRATORY: No shortness of breath, cough or sputum, wheezing, hemoptysis. GASTROINTESTINAL: + anorexia, nausea, vomiting.? No diarrhea, abdominal pain, melena, BRBPR. GENITOURINARY: No dysuria, frequency, urgency or retention. NEUROLOGICAL: + headache, dizziness, lightheadedness.? No syncope, paralysis, ataxia, numbness or tingling in the extremities, focal weakness, change in bowel or bladder control, seizure. MUSCULOSKELETAL: No muscle, back pain, joint pain or stiffness. HEMATOLOGIC: No anemia, bleeding or bruising. LYMPHATICS: No enlarged nodes. No history of splenectomy. PSYCHIATRIC: No history of depression or anxiety. ENDOCRINOLOGIC: + reports of sweating, cold or heat intolerance. No polyuria or polydipsia. ALLERGIES: No history of asthma, hives, eczema or rhinitis. Physical exam: The patient is awake alert in no acute distress. No stridor no stertor Neck is supple there is some shotty adenopathy level 2 bilaterally. Mouth and oropharynx reveals 3+ tonsils with cheesy pena exudate bilaterally. There is some erythema as well. Uvula is midline there is no trismus or peritonsillar fullness. Nasal exam reveals no purulence CT neck reveals bilateral tonsillar hypertrophy with inflammation. There is no evidence of peritonsillar abscess. Assessment: Acute streptococcal tonsillitis Sepsis Plan: I completely agree with the IV antibiotic choice. She does not need any acute surgical intervention. I have ordered a Monospot for completeness. Should it be positive, amoxicillin/ampicillin should be avoided.
[2022-05-11 17:38] VITALS: BP 113/45; PULSE 99; RESP 24; TEMP 37; O2SAT 97
[2022-05-11] MEDS: 0.9% Normal Saline 1,000 ML 150 ML IV (17:45)
[2022-05-11] MEDS: Potassium Chloride 10mEq/100mL 10 MEQ/100 ML IV.SOLN. 100 MEQ IV BOLUS ×4 (17:55→21:12)
[2022-05-11] MEDS: Pantoprazole Sodium 20 MG Tablet PO (18:04)
[2022-05-11 20:02] LABS: Internal QC Validated? YES +Cl - CLEAR BKGD; Monotest Negative (Negative)
[2022-05-11 22:22] VITALS: PULSE 93
[2022-05-11] MEDS: BMX LIQUID 180 ML 10 ML PO (23:29)
[2022-05-12] VITALS (10 sets, daily range): BP systolic 101–135; BP diastolic 54–79; PULSE 75–103; RESP 16–18; TEMP 36.4–36.9; O2SAT 96–99
[2022-05-12] MEDS: dexAMETHasone 10 MG/ML Vial IV ×3 (02:13→18:25)
[2022-05-12] MEDS: 0.9% Normal Saline 1,000 ML 150 ML IV ×4 (02:13→20:53)
[2022-05-12 06:33] LABS: Absolute Lymphocyte Count 0.57 X10^3/uL (0.83-4.51); Absolute Neutrophil Count 13.2 X10^3/uL (2.0-7.7); Basophil# 0.02 X10^3/uL; Basophil% 0.1 % (0-1); Hematocrit 40.4 % (37-47); Hemoglobin 13.6 g/dL (12.0-15.0); Lymphocyte # 0.57 X10^3/ul (0.83-4.51); Mean Corp Hgb Conc 33.7 g/dL (32-36); Mean Corpuscular Hgb 32.5 pg (27.0-32.0); Mean Corpuscular Volume 96.4 fL (81-99); Mean Platelet Vol. 9.3 fl (6.2-12.0); Monocyte# 0.21 X10^3/uL; Monocyte% 1.5 % (0-10); NRBC Flagged by Analyzer 0 % (0-5); Neutrophil # 13.23 X10^3/uL (2.7-7.7); POSITIVE DIFFERENTIAL YES; Platelet Count 269 K/mm3 (150-450); RBC Distribution Width CV 12.4 % (11.6-14.6); RBC Distribution Width SD 43.9 fl (35.1-43.9); Red Blood Count 4.19 M/mm3 (4.2-5.4); White Blood Count 14.2 K/mm3 (4.4-11.0)
[2022-05-12 06:35] LABS: Differential Indicated SCAN CRITERIA MET
[2022-05-12 07:08] LABS: ALB/GLOB Ratio 0.7 RATIO (0.9-2.4); AST(SGOT) 14 U/L (15-37); Alanine Aminotransfer ALT/SGPT 17 U/L (13-56); Albumin, Serum 2.7 g/dL (3.2-5.0); Alkaline Phosphatase 50 U/L (45-117); Anion Gap 6 (5-15); BUN 7 mg/dL (7-18); BUN/Creat Ratio 9.7 RATIO (10-20); Calcium,Total 8.4 mg/dL (8.5-10.1); Chloride 112 mmol/L (98-107); Creatinine, Serum 0.72 mg/dL (0.55-1.02); EST Glomerular Filtration Rate 99 mL/min (>60); Est Glom Filt Rate - Afr Amer 120 mL/min (>60); Estimated Creatinine Clearance 84.65 ml/min; Globulin 4.1 g/dL (2.2-4.2); Glucose 208 mg/dL (74-106); Potassium 3.7 mmol/L (3.5-5.1); Protein, Total 6.8 g/dL (6.4-8.2); Sodium Level 139 mmol/L (136-145)
--- NOTE | 2022-05-12 07:22 | PCM.PN.HOSP ---
Reason for Visit Reason for Visit: Diagnoses Sepsis, unspecified organism (05/11/22) Subjective Subjective Patient is a 33-year-old female with history of adrenal insufficiency who presented with sore throat fever and dysphagia. An assessment of sepsis secondary to acute streptococcal pharyngitis made admitted to regular nursing floor for further management Objective Data Objective Data Vital Signs: Vital Signs Temp Pulse Resp BP Pulse Ox O2 Del Method 98.3 F 96 16 101/54 L 97 Room Air 05/12/22 05:35 05/12/22 05:35 05/12/22 05:35 05/12/22 05:35 05/12/22 05:35 05/12/22 05:35 Oxygen Delivery Method Room Air Weight: 79.197 kg Body Mass Index (BMI) 33.0 Intake & Output: Intake and Output for Last 24 Hours 05/10/22 05/11/22 05/12/22 23:59 23:59 23:59 Intake Total 3624 / 4024 2224 / 2224 Output Total 250 / 250 Balance 3374 / 3774 2224 / 2224 Lab / Micro Data Result Diagrams: 05/12/22 05:04 05/12/22 05:04 Labs: Laboratory Results - last 24 hr 05/11/22 14:05: WBC 17.8 H, RBC 4.50, Hgb 14.6, Hct 42.3, MCV 94.0, MCH 32.4 H, MCHC 34.5, RDW Std Deviation 44.3 H, RDW Coeff of Elizabeth 12.8, Plt Count 250, MPV 9.0, Immature Gran % (Auto) 1.000 H, Neut % (Auto) 78.9 H, Lymph % (Auto) 12.7 L, [place] % (Auto) 6.9, Eos % (Auto) 0.1, Baso % (Auto) 0.4, Absolute Neuts (auto) 14.0 H, Absolute Lymphs (auto) 2.26, Nucleated RBC % 0 05/11/22 14:05: Sodium 131 L, Potassium 3.4 L, Chloride 98, Carbon Dioxide 25.0, Anion Gap 8, BUN 12, Creatinine 1.15 H, Estim Creat Clear Calc 53.00, Est GFR (MDRD) Af Amer 70, Est GFR (MDRD) Non-Af 58 L, BUN/Creatinine Ratio 10.4, Glucose 108 H, Calcium 8.9 05/11/22 14:05: Magnesium 1.7 05/11/22 14:05: Monoscreen Negative 05/11/22 15:08: PT Cancelled, INR Cancelled 05/11/22 15:08: Lactic Acid 1.0 05/11/22 16:08: PT 16.3 H, INR 1.3 05/12/22 05:04: WBC 14.2 H, RBC 4.19 L, Hgb 13.6, Hct 40.4, MCV 96.4, MCH 32.5 H, MCHC 33.7, RDW Std Deviation 43.9, RDW Coeff of Elizabeth 12.4, Plt Count 269, MPV 9.3, Immature Gran % (Auto) 1.400 H, Neut % (Auto) 93.0 H, Lymph % (Auto) 4.0 L, [place] % (Auto) 1.5, Eos % (Auto) 0.0, Baso % (Auto) 0.1, Absolute Neuts (auto) 13.2 H, Absolute Lymphs (auto) 0.57 L, Nucleated RBC % 0 05/12/22 05:04: Sodium 139, Potassium 3.7, Chloride 112 H, Carbon Dioxide 21.0, Anion Gap 6, BUN 7, Creatinine 0.72, Estim Creat Clear Calc 84.65, Est GFR (MDRD) Af Amer 120, Est GFR (MDRD) Non-Af 99, BUN/Creatinine Ratio 9.7 L, Glucose 208 H, Calcium 8.4 L, Total Bilirubin 0.20, AST 14 L, ALT 17, Alkaline Phosphatase 50, Total Protein 6.8, Albumin 2.7 L, Globulin 4.1, Albumin/Globulin Ratio 0.7 L Micro: Microbiology 05/11/22 13:55 Interface Orders Group A Streptococcus Rapid Screen - Final Streptococcus Group A Radiography Diagnostic Testing: Radiology Impression Soft Tissue Neck CT 05/11/22 13:38 IMPRESSION: Moderate degree of enlargement of the palatine tonsils worse on the left side with areas of decreased attenuation suggestive of possible early abscess formation as described. Electronically Signed: Angel Awad MD at 14:41 EDT , Physical Exam Narrative GENERAL: cooperative HEENT: Enlarged tonsils with some exudate, submandibular adenopathy EYES; Anicteric, Normal Conjunctiva NECK; supple, normal thyroid, RESPIRATORY: Diminished to auscultation CARDIOVASCULAR: Regular S1 S2, GI: soft, normoactive bowel sounds, : No Renal angle tenderness; EXTREMITIES: No edema, no clubbing, MUSCULOSKELETAL: no muscle wasting NEURO: Awake; no lateralizing signs. SKIN: No Rash PSYCH; Flat affect Assessment & Plan Assessment/Plan (1) Sepsis: PLAN: Plan Patient is a 33-year-old female with history of adrenal insufficiency who presented with sore throat fever and dysphagia. An assessment of sepsis secondary to acute streptococcal pharyngitis made admitted to regular nursing floor for further management 1. Sepsis secondary to acute streptococcal pharyngitis with suspected early tonsillar abscess ? Patient admitted to the regular nursing floor started on broad-spectrum antibiotic therapy with Unasyn. Patient was also started on Decadron. Patient was seen in consultation by Dr. Aramis Gonzalez with ENT he is noted recommendations reviewed 2. Hyponatremia ? Secondary to hypovolemic hyponatremia sodium level on admission was 131 rehydrated up to 139 3. Hypokalemia -corrected per protocol repeat labs ordered for monitoring 4. Acute kidney injury ? Baseline creatinine 0.68 creatinine on admission was 1.15 rehydrated with IV fluid creatinine down to 0.72 5. Adrenal insufficiency ? Patient is on hydrocortisone did receive Decadron in the ED 6. Class I obesity with BMI of 33.0 ? Weight loss advised 7. DVT prophylaxis ? Low risk Time spent in the patient's overall evaluation,decision-making process, review of diagnostic data, adjustment of management, discussion with other providers, nursing nursing and ancillary staff involved in patient's care documentation, 40 Minutes Charges/Coding Visit Charges Inpatient E&M: 29958 Subs Hosp L2
[2022-05-12] MEDS: BMX LIQUID 180 ML 10 ML PO (08:23)
[2022-05-12] MEDS: Pantoprazole Sodium 20 MG Tablet PO ×2 (08:24→22:50)
--- NOTE | 2022-05-12 09:35 | CASEMGMT ---
MANAN SANTANA Assessment: Face to Face with pt for initial transition planning/care coordination assessment. RN CM introduced self and role at [facility], pt voices understanding and consents to assessment. Pt is A/O x4 and answers all questions appropriately at this time. Pt sitting up in bed in no distress with at bedside in no distress. Care providers, pharmacy, and demographics verified/updated. Admitting Dx: sepsis strep pharyngitis, early abscesses PCP:Pallavi Vasquez Specialists:farnaz Fair Pharmacy: [facility] Retail Insurance: [employer], Self Pay Prescription Benefit: no LNOK: [place], Living Arrangements: Pt lives with and two children in a single story home with 2 steps to enter. Pt reports she is I in ADL's and denies concerns at home. 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 DME/HHC/SNF: Pt denies having any DME in the home, previous HHC or SNF stays. Pt states no concerns with going home at time of dc. Pt states no further concerns/needs. CM to follow. Advised pt to ask CM if any further question/concerns/needs arise, voices understanding. Pt Goal: Home Plan: Home
--- NOTE | 2022-05-12 16:53 | NURSING ---
pt states swallowing pain is improving this afternoon, pain is not gone but pt declined BMX liquid at this time
[2022-05-13 02:30] VITALS: BP 120/78; PULSE 76; RESP 16; TEMP 36.4; O2SAT 97
[2022-05-13] MEDS: dexAMETHasone 10 MG/ML Vial IV (02:52)
[2022-05-13] MEDS: 0.9% Normal Saline 1,000 ML 150 ML IV (02:53)
[2022-05-13 05:47] LABS: Absolute Lymphocyte Count 0.79 X10^3/uL (0.83-4.51); Absolute Neutrophil Count 10.5 X10^3/uL (2.0-7.7); Basophil# 0.02 X10^3/uL; Basophil% 0.2 % (0-1); Hematocrit 34.5 % (37-47); Hemoglobin 11.7 g/dL (12.0-15.0); Lymphocyte # 0.79 X10^3/ul (0.83-4.51); Lymphocyte % 6.7 % (19-41); Mean Corp Hgb Conc 33.9 g/dL (32-36); Mean Corpuscular Hgb 32.4 pg (27.0-32.0); Mean Corpuscular Volume 95.6 fL (81-99); Mean Platelet Vol. 9.6 fl (6.2-12.0); Monocyte# 0.28 X10^3/uL; Monocyte% 2.4 % (0-10); NRBC Flagged by Analyzer 0 % (0-5); Neutrophil # 10.47 X10^3/uL (2.7-7.7); Neutrophil % 89.3 % (47-70); Platelet Count 255 K/mm3 (150-450); RBC Distribution Width CV 12.5 % (11.6-14.6); Red Blood Count 3.61 M/mm3 (4.2-5.4); White Blood Count 11.7 K/mm3 (4.4-11.0)
[2022-05-13 06:09] LABS: Anion Gap 6 (5-15); BUN 10 mg/dL (7-18); BUN/Creat Ratio 17.5 RATIO (10-20); Calcium,Total 8.1 mg/dL (8.5-10.1); Chloride 115 mmol/L (98-107); Creatinine, Serum 0.57 mg/dL (0.55-1.02); EST Glomerular Filtration Rate 131 mL/min (>60); Est Glom Filt Rate - Afr Amer 158 mL/min (>60); Estimated Creatinine Clearance 106.92 ml/min; Glucose 163 mg/dL (74-106); Magnesium 2.4 mg/dL (1.6-2.6); Phosphorus 2.1 mg/dL (2.5-4.9); Potassium 3.9 mmol/L (3.5-5.1); Sodium Level 142 mmol/L (136-145)
--- NOTE | 2022-05-13 07:12 | PCM.PN.HOSP ---
Reason for Visit Reason for Visit: Diagnoses Sepsis, unspecified organism (05/11/22) Subjective Subjective Throat pain as well as swallowing significantly improved. Plan for patient to be assessed for possible discharge Objective Data Objective Data Vital Signs: Vital Signs Temp Pulse Resp BP Pulse Ox O2 Del Method 97.5 F L 76 16 120/78 97 Room Air 05/13/22 02:30 05/13/22 02:30 05/13/22 02:30 05/13/22 02:30 05/13/22 02:30 05/13/22 02:30 Oxygen Delivery Method Room Air Weight: 79.197 kg Body Mass Index (BMI) 33.0 Intake & Output: Intake and Output for Last 24 Hours 05/11/22 05/12/22 05/13/22 23:59 23:59 23:59 Intake Total 3624 / 4024 7382.5 / 7682.5 1412 / 1412 Output Total 250 / 250 Balance 3374 / 3774 7382.5 / 7682.5 1412 / 1412 Lab / Micro Data Result Diagrams: 05/13/22 05:10 05/13/22 05:10 Labs: Laboratory Results - last 24 hr 05/13/22 05:10: WBC 11.7 H, RBC 3.61 L, Hgb 11.7 L, Hct 34.5 L, MCV 95.6, MCH 32.4 H, MCHC 33.9, RDW Std Deviation 44.0 H, RDW Coeff of Elizabeth 12.5, Plt Count 255, MPV 9.6, Immature Gran % (Auto) 1.400 H, Neut % (Auto) 89.3 H, Lymph % (Auto) 6.7 L, [place] % (Auto) 2.4, Eos % (Auto) 0.0, Baso % (Auto) 0.2, Absolute Neuts (auto) 10.5 H, Absolute Lymphs (auto) 0.79 L, Nucleated RBC % 0 05/13/22 05:10: Sodium 142, Potassium 3.9, Chloride 115 H, Carbon Dioxide 21.0, Anion Gap 6, BUN 10, Creatinine 0.57, Estim Creat Clear Calc 106.92, Est GFR (MDRD) Af Amer 158, Est GFR (MDRD) Non-Af 131, BUN/Creatinine Ratio 17.5, Glucose 163 H, Calcium 8.1 L, Phosphorus 2.1 L, Magnesium 2.4 Micro: Microbiology 05/11/22 15:15 Blood Culture (Wb) - Left Hand Blood Culture - Preliminary No growth in 48 hours. 05/11/22 15:08 Blood Culture (Wb) - Anticubital Left Blood Culture - Preliminary No growth in 48 hours. 05/11/22 Unknown Urine, Clean Catch Urine Culture - Preliminary Culture exhibits no growth. 05/11/22 13:55 Interface Orders Group A Streptococcus Rapid Screen - Final Streptococcus Group A Physical Exam Narrative GENERAL: cooperative HEENT: Enlarged tonsils with some exudate, submandibular adenopathy EYES; Anicteric, Normal Conjunctiva NECK; supple, normal thyroid, RESPIRATORY: Diminished to auscultation CARDIOVASCULAR: Regular S1 S2, GI: soft, normoactive bowel sounds, : No Renal angle tenderness; EXTREMITIES: No edema, no clubbing, MUSCULOSKELETAL: no muscle wasting NEURO: Awake; no lateralizing signs. SKIN: No Rash PSYCH; Flat affect Assessment & Plan Assessment/Plan (1) Sepsis: PLAN: Plan Patient is a 33-year-old female with history of adrenal insufficiency who presented with sore throat fever and dysphagia. An assessment of sepsis secondary to acute streptococcal pharyngitis made admitted to regular nursing floor for further management 1. Sepsis secondary to acute streptococcal pharyngitis with suspected early tonsillar abscess ? Patient admitted to the regular nursing floor started on broad-spectrum antibiotic therapy with Unasyn. Patient was also started on Decadron. Patient was seen in consultation by Dr. Aramis Gonzalez with ENT he is noted recommendations reviewed ? Patient to be discharged home on Augmentin 2. Hyponatremia ? Secondary to hypovolemic hyponatremia sodium level on admission was 131 rehydrated up to 139 3. Hypokalemia -corrected per protocol repeat labs ordered for monitoring 4. Acute kidney injury ? Baseline creatinine 0.68 creatinine on admission was 1.15 rehydrated with IV fluid creatinine down to 0.72 5. Adrenal insufficiency ? Patient is on hydrocortisone did receive Decadron in the ED ? Prescription written for hydrocortisone and 6. Class I obesity with BMI of 33.0 ? Weight loss advised 7. DVT prophylaxis ? Low risk Time spent in the patient's overall evaluation,decision-making process, review of diagnostic data, adjustment of management, discussion with other providers, nursing nursing and ancillary staff involved in patient's care documentation, 40 Minutes Charges/Coding Visit Charges Inpatient E&M: 61018 Subs Hosp L2
[2022-05-13 07:29] VITALS: O2SAT 97
[2022-05-13 08:33] VITALS: BP 131/71; PULSE 90; RESP 18; TEMP 36.7; O2SAT 98
--- NOTE | 2022-05-13 08:34 | DS.PCM_ITS ---
Providers Date of Admission: 05/11/22 Date of Discharge: 05/13/22 Primary Care Physician: TYRELL Frias Consultations 05/11/22 17:11 Consult: ENT Routine Consulting Provider: Aramis Gonzalez Reason for Consult: Strep pharyngitis, Sepsis, concern early abscesses EMERGENT Consult: No MD Notified: Yes Date Notified: 05/11/22 Time Notified: 15:53 Method of Notification: Verbal Reason For Visit: SEPSIS STREP PHARYNGITIS, EARLY ABSCESSES Diagnosis Discharge Diagnosis (1) Sepsis: Status: Acute Code(s): A41.9 - Sepsis, unspecified organism Plan Patient is a 33-year-old female with history of adrenal insufficiency who presented with sore throat fever and dysphagia. An assessment of sepsis secondary to acute streptococcal pharyngitis made admitted to regular nursing floor for further management 1. Sepsis secondary to acute streptococcal pharyngitis with suspected early tonsillar abscess ? Patient admitted to the regular nursing floor started on broad-spectrum antibiotic therapy with Unasyn. Patient was also started on Decadron. Patient was seen in consultation by Dr. Aramis Gonzalez with ENT he is noted recommendations reviewed ? Patient to be discharged home on Augmentin 2. Hyponatremia ? Secondary to hypovolemic hyponatremia sodium level on admission was 131 rehydrated up to 139 3. Hypokalemia -corrected per protocol repeat labs ordered for monitoring 4. Acute kidney injury ? Baseline creatinine 0.68 creatinine on admission was 1.15 rehydrated with IV fluid creatinine down to 0.72 5. Adrenal insufficiency ? Patient is on hydrocortisone did receive Decadron in the ED ? Prescription written for hydrocortisone and 6. Class I obesity with BMI of 33.0 ? Weight loss advised 7. DVT prophylaxis ? Low risk Time spent in the patient's overall evaluation,decision-making process, review of diagnostic data, adjustment of management, discussion with other providers, nursing nursing and ancillary staff involved in patient's care documentation, 40 Minutes Medications at Discharge Home Medications amoxicillin 875 mg-potassium clavulanate 125 mg tablet 1 tab PO BID #20 tabs 05/13/22 hydrocortisone 10 mg tablet 10 mg PO TID #90 tabs 05/13/22 Hospital Course Summary of Care Provided Minutes Spent on Discharge: 40 Physical Exam Narrative GENERAL: cooperative HEENT: Enlarged tonsils with some exudate, submandibular adenopathy EYES; Anicteric, Normal Conjunctiva NECK; supple, normal thyroid, RESPIRATORY: Diminished to auscultation CARDIOVASCULAR: Regular S1 S2, GI: soft, normoactive bowel sounds, : No Renal angle tenderness; EXTREMITIES: No edema, no clubbing, MUSCULOSKELETAL: no muscle wasting NEURO: Awake; no lateralizing signs. SKIN: No Rash PSYCH; Flat affect Weight / BMI Weight Weight: 79.197 kg Body Mass Index (BMI) 33.0 ABG / Lab / Microbiology Data Result Diagrams: 05/13/22 05:10 05/13/22 05:10 Laboratory: Laboratory Results - last 24 hr 05/13/22 05:10: WBC 11.7 H, RBC 3.61 L, Hgb 11.7 L, Hct 34.5 L, MCV 95.6, MCH 32.4 H, MCHC 33.9, RDW Std Deviation 44.0 H, RDW Coeff of Elizabeth 12.5, Plt Count 255, MPV 9.6, Immature Gran % (Auto) 1.400 H, Neut % (Auto) 89.3 H, Lymph % (Auto) 6.7 L, [place] % (Auto) 2.4, Eos % (Auto) 0.0, Baso % (Auto) 0.2, Absolute Neuts (auto) 10.5 H, Absolute Lymphs (auto) 0.79 L, Nucleated RBC % 0 05/13/22 05:10: Sodium 142, Potassium 3.9, Chloride 115 H, Carbon Dioxide 21.0, Anion Gap 6, BUN 10, Creatinine 0.57, Estim Creat Clear Calc 106.92, Est GFR (MDRD) Af Amer 158, Est GFR (MDRD) Non-Af 131, BUN/Creatinine Ratio 17.5, Glucose 163 H, Calcium 8.1 L, Phosphorus 2.1 L, Magnesium 2.4 Microbiology: Microbiology 05/11/22 Unknown Urine, Clean Catch Urine Culture - Final Culture exhibits no growth. 05/11/22 15:15 Blood Culture (Wb) - Left Hand Blood Culture - Preliminary No growth in 48 hours. 05/11/22 15:08 Blood Culture (Wb) - Anticubital Left Blood Culture - Preliminary No growth in 48 hours. 05/11/22 13:55 Interface Orders Group A Streptococcus Rapid Screen - Final Streptococcus Group A D/C Instructions Discharge Diet: No restrictions Discharge Activity: Return to Normal Activity Call your doctor if you observe: Fever of 101 or Higher, Shortness of breath, Fainting spells and Chest pain Meaningful Use Info Meaningful Use Diagnoses (Choose all that apply): None applicable Discharge Plan Admission Admit Date/Time: 05/11/22 15:48 Attending Provider: Valeriy Funk Primary Care Provider: Pallavi Vasquez Consulting Providers: Aramis Gonzalez ; Mamie Kuo Discharge Orders/Prescriptions Prescriptions: New hydrocortisone 10 mg tablet 10 mg PO TID Qty: 90 0RF amoxicillin-pot clavulanate 875-125 mg tablet 1 tab PO BID Qty: 20 0RF Referrals / Follow Up: Brian Veliz MD [Med Staff - Mental Health Counselor] - Pallavi Vasquez PA [Primary Care Provider] - Within 1 Week Disposition Disposition (needs filled in before D/C Order can be placed): Home, Self Care Charges/Coding Visit Charges Inpatient E&M: 64073 Disch Hosp >30min
== END 2022-05-13 11:00 | disposition home or self-care (01) | DRG 872 ==
LOC: ED 13:43 → MS3 16:44
PROVIDERS: Otolaryngology; Admitting Provider Family Medicine; Emergency Provider Student in an Organized Health Care Education/Training Program; Visit Provider Internal Medicine
DX: A41.9 Sepsis, unspecified organism (principal); E27.40 Unspecified adrenocortical insufficiency; N17.9 Acute kidney failure, unspecified; E87.1 Hypo-osmolality and hyponatremia; J36 Peritonsillar abscess; E87.6 Hypokalemia; Z79.52 Long term (current) use of systemic steroids; Z87.891 Personal history of nicotine dependence; E66.9 Obesity, unspecified; Z68.33 Body mass index [BMI] 33.0-33.9, adult
CPT/HCPCS: 36415; 70491; 80048; 80053; 83605; 83735; 84100; 85025; 85610; 86308; 87040; 87086; 87880; 97802; 99285; J7030; Q9967; A4216; J0295; J2405